=== PATIENT | male | born 1945 | race Native Hawaiian/Other Pacific Islander ===

== ENCOUNTER → 2016-07-15 | Outpatient (CLI) | payer MEDICARE ==
[~2016-07-15] MED LIST: AMLO5TAB22 PO; ATOR10 PO; COZA100T PO; GABA300C3 PO; GLIM2TAB PO; MOBI15TA PO; NEXI40CA PO; SITA100 PO; SOMA250T PO; ST J81CH PO; TAMS0.4C67 PO
[2016-07-15 13:05] LABS: HEMATOCRIT 35.9 % (39.0-51.0); MEAN CELL VOLUME 61.8 FL (80.0-100.0); MEAN CORPUSCULAR HEMOGLOBIN 19.5 PG (27.0-34.0); MEAN CORPUSCULAR HGB CONC 31.6 % (32.0-36.0); PLATELET COUNT 138 TH/MM3 (150-450); RED BLOOD COUNT 5.81 MIL/MM3 (4.50-5.90); RED CELL DISTRIBUTION WIDTH 15.9 % (11.6-17.2); WHITE BLOOD COUNT 8.6 TH/MM3 (4.0-11.0)
[2016-07-15 13:09] LABS: REVIEW FLAG FINAL
[2016-07-15 13:30] LABS: MICRO ALBUMIN RANDOM URINE RAW 39.8 MG/L (0.0-30.0)
[2016-07-15 13:36] LABS: ALKALINE PHOSPHATASE 63 U/L (45-117); ALT (GPT) 42 U/L (12-78); ANION GAP 7 MEQ/L (5-15); AST (GOT) 36 U/L (15-37); BICARBONATE 31.8 MEQ/L (21.0-32.0); BLOOD UREA NITROGEN 17 MG/DL (7-18); CHLORIDE 101 MEQ/L (98-107); GLOMERULAR FILTRATION RATE 75 ML/MIN (>89); GLUCOSE,FASTING 149 MG/DL (74-99); HDL CHOLESTEROL 36.8 MG/DL (40.0-60.0); LDL CHOLESTEROL 55 MG/DL (0-99); LDL CHOLESTEROL DIRECT 82 MG/DL (0-99); POTASSIUM 3.7 MEQ/L (3.5-5.1); SODIUM (NA) 140 MEQ/L (136-145); TOTAL BILIRUBIN ADULT 1.3 MG/DL (0.2-1.0)
[2016-07-15 13:58] LABS: HEMOGLOBIN A1a 1.9 %; HEMOGLOBIN A1b 0.9 %; HEMOGLOBIN Ao 77.8 %; HEMOGLOBIN P3 4.5 %
== END ==
LOC: PLAB 09:45
PROVIDERS: ATTEND Internal Medicine
DX: E11.65 Type 2 diabetes mellitus with hyperglycemia (principal); I10 Essential (primary) hypertension
CPT/HCPCS: 36415; 80053; 80061; 82043; 83036; 83721; 85027

== ENCOUNTER 2016-12-28 | Emergency (ER) | payer MEDICARE ==
[~2016-12-28] VITALS: Ht 172.7 cm; Wt 85.4 kg
[2016-12-28] VITALS (9 sets, daily range): BP systolic 140–214; BP diastolic 76–128; PULSE 61–81; RESP 16–18; TEMP 97.6–97.9; O2SAT 94–97
[2016-12-28] MEDS ORDERED: SODIUM CHLORIDE 0.9% FLUSH 10 ML FLUSH IVF PRN (01:00)
[2016-12-28] MEDS ORDERED: MECLIZINE HCL 25 MG TAB PO ONE (01:00)
[2016-12-28] MEDS ORDERED: INSULIN HUMAN REGULAR 1,000 UNITS/10 ML VIAL IV PUSH ONE ×3 (01:00→04:15)
[2016-12-28 01:32] LABS: BLOOD, URINE NEG (NEG); GLUCOSE,URINE 1000 OR GREATER mg/dL (NEG); KETONE, URINE NEG (NEG); NITRITE,URINE NEG (NEG)
[2016-12-28 01:33] LABS: AUTOMATED NEUTROPHIL # 10.7 TH/MM3 (1.8-7.7); BASOPHIL % 0.1 % (0.0-2.0); EOSINOPHIL % 0.2 % (0.0-4.0); HEMATOCRIT 37.5 % (39.0-51.0); LYMPH % 7.4 % (9.0-44.0); LYMPHOCYTE # 0.9 TH/MM3 (1.0-4.8); MEAN CELL VOLUME 64.9 FL (80.0-100.0); MEAN CORPUSCULAR HEMOGLOBIN 20.1 PG (27.0-34.0); MEAN CORPUSCULAR HGB CONC 30.9 % (32.0-36.0); MONO % 1.6 % (0.0-8.0); NEUT % 90.7 % (16.0-70.0); PLATELET COUNT 162 TH/MM3 (150-450); RED BLOOD COUNT 5.78 MIL/MM3 (4.50-5.90); WHITE BLOOD COUNT 11.8 TH/MM3 (4.0-11.0)
--- NOTE | 2016-12-28 01:36 | RADRPT ---
EXAM DATE/TIME: 12/28/2016 01:25 [facility] COMPARISON: No previous studies available for comparison. INDICATIONS : Dizziness along with vomiting that started tonight RADIATION DOSE: 60.92 CTDIvol (mGy) MEDICAL HISTORY : Cerebrovascular disease. Diabetes mellitus type 2. Hypertension. SURGICAL HISTORY : Appendectomy. ENCOUNTER: Initial ACUITY: 1 day PAIN SCALE: 2/10 LOCATION: cranial TECHNIQUE: Multiple contiguous axial images were obtained of the head. Using automated exposure control and adj ustment of the mA and/or kV according to patient size, radiation dose was kept as low as reasonably a chievable to obtain optimal diagnostic quality images. DICOM format image data is available electro nically for review and comparison. FINDINGS: CEREBRUM: Moderate diffuse cerebral volume loss. Moderate periventricular hypodensities likely reflecting white matter demyelination. The ventricles are in the upper limits of normal for degree of atrophy.. No e vidence of midline shift, mass lesion, hemorrhage or acute infarction. No extra-axial fluid collecti ons are seen. POSTERIOR FOSSA: The cerebellum and brainstem are intact. The 4th ventricle is midline. The cerebellopontine angle i s unremarkable. EXTRACRANIAL: The visualized portion of the orbits is intact. SKULL: The calvaria is intact. No evidence of skull fracture. CONCLUSION: 1. Senescent changes with moderate periventricular ischemic white matter margination. 2. No acute intracranial normality. Bari Mcdermott MD on December 28, 2016 at 1:33 Board Certified Radiologist. This report was verified electronically.
[2016-12-28 01:41] LABS: HEMO FLAGS AUTO DIFF
[2016-12-28 01:44] LABS: CHLORIDE 96 MEQ/L (98-107); POTASSIUM 4.4 MEQ/L (3.5-5.1); SODIUM (NA) 134 MEQ/L (136-145)
[2016-12-28 01:48] LABS: ANION GAP 13 MEQ/L (5-15); BICARBONATE 25.2 MEQ/L (21.0-32.0)
[2016-12-28 01:51] LABS: URINE COLOR YELLOW (YELLW/STRAW)
[2016-12-28 01:52] LABS: SQUAMOUS EPITHELIAL CELL URINE 0-5 /hpf (0-5)
[2016-12-28 01:53] LABS: COMMENT (UR) CULT NOT INDICATED; CULTURE IF INDICATED CULT NOT INDICATED
[2016-12-28 01:55] LABS: ALKALINE PHOSPHATASE 71 U/L (45-117); ALT (GPT) 43 U/L (12-78); AST (GOT) 38 U/L (15-37); BETA-HYDROXYBUTYRATE 0.15 MMOL/L (0.00-0.39); BLOOD UREA NITROGEN 27 MG/DL (7-18); GLOMERULAR FILTRATION RATE 54 ML/MIN (>89); MAGNESIUM 1.7 MG/DL (1.5-2.5); TOTAL BILIRUBIN ADULT 0.9 MG/DL (0.2-1.0)
[2016-12-28 01:57] LABS: PLATELET ESTIMATE SMEAR NORMAL (NORMAL); PLATELET MORPHOLOGY NORMAL (NORMAL); SCAN/DIFF AUTO DIFF CONFIRMED
--- NOTE | 2016-12-28 02:38 | PD ---
HPI Chief Complaint: Dizziness Time Seen by Provider: 00:48 Travel History International Travel<30 days: No Contact w/Intl Traveler<30days: No Traveled to known affect area: No History of Present Illness HPI 71-year-old male with history of diabetes, hypertension, hypercholesterolemia, here for evaluation of sudden onset dizziness that started at around 9:30 PM. The patient had a cortisone injection in his left knee today as well as a flu shot. BGL upon arrival to the emergency department is 460s. Patient reports he feels as though the room is spinning. He denies headache. No chest pain or dyspnea. No paresthesias or motor deficits. No fevers or recent illness. PFSH Past Medical History Arthritis: Yes Anxiety: No Depression: No Cancer: No Cardiovascular Problems: Yes High Cholesterol: Yes Chest Pain: Yes Cerebrovascular Accident: Yes (HX STROKE, 2003) Diabetes: Yes Patient Takes Glucophage: No Diminished Hearing: No Endocrine: Yes Gastrointestinal Disorders: Yes (appendectomy) GERD: No Genitourinary: No Hiatal Hernia: No Hypertension: Yes Musculoskeletal: Yes Neurologic: No Psychiatric: No Reproductive: No Respiratory: No Sickle Cell Disease: No Thyroid Disease: No Ulcer: No Influenza Vaccination: Yes (12/27/16) Past Surgical History Abdominal Surgery: No AICD: No Arteriovenous Shunt: No Cardiac Surgery: No Ear Surgery: No Endocrine Surgery: No Eye Surgery: No Genitourinary Surgery: No Gynecologic Surgery: No Insulin Pump: No Joint Replacement: No Oral Surgery: No Pacemaker: No Thoracic Surgery: No Other Surgery: Yes Social History Alcohol Use: No Tobacco Use: No Substance Use: No Allergies-Medications (Allergen,Severity, Reaction): Coded Allergies: No Known Allergies (Verified , 10/27/14) Reported Meds & Prescriptions Reported Meds & Active Scripts Active Reported Soma (Carisoprodol) 250 Mg Tab 250 Mg PO HS Aspirin 81 mg chewable (Aspirin) 81 Mg Chw 81 Mg PO DAILY Cozaar (Losartan Potassium) 100 Mg Tab 100 Mg PO DAILY Glimepiride 2 Mg Tab 2 Mg PO BID Gabapentin 300 Mg Cap 300 Mg PO DAILY Lipitor (Atorvastatin Calcium) 10 Mg Tab 10 Mg PO HS Amlodipine Besylate 5 mg (Amlodipine Besylate) 5 Mg Tab 5 Mg PO DAILY Flomax (Tamsulosin HCl) 0.4 Mg Cap 0.4 Mg PO DAILY Review of Systems Except as stated in HPI: all other systems reviewed are Neg Physical Exam Narrative GENERAL: Well-developed, well-nourished, awake, alert, GCS 15, no apparent distress. SKIN: Focused skin assessment warm/dry. HEAD: Atraumatic. Normocephalic. EYES: Pupils equal, round, 3 mm, react to light. EOMI. No scleral icterus. No injection or drainage. ENT: No nasal bleeding or discharge. Mucous membranes pink and moist. NECK: Trachea midline. No JVD. CARDIOVASCULAR: Regular rate and rhythm. RESPIRATORY: No accessory muscle use. Clear to auscultation. Breath sounds equal bilaterally. GASTROINTESTINAL: Abdomen soft, non-tender, nondistended. MUSCULOSKELETAL: No obvious deformities. No clubbing. No cyanosis. No edema. NEUROLOGICAL: Awake and alert. No obvious cranial nerve deficits. Motor grossly within normal limits. Normal speech. No focal deficits. No pronator drift. PSYCHIATRIC: Appropriate mood and affect; insight and judgment normal. Data Data Last Documented VS Vital Signs Date Time Temp Pulse Resp B/P (MAP) Pulse Ox O2 Delivery O2 Flow Rate FiO2 12/28/16 03:05 68 18 178/90 (119) 96 Room Air 12/28/16 02:08 97.7 Orders Orders Electrocardiogram (12/28/16 00:52) Complete Blood Count With Diff (12/28/16 00:52) Comprehensive Metabolic Panel (12/28/16 00:52) Magnesium (Mg) (12/28/16 00:52) Beta Hydroxybutyrate (Acetone) (12/28/16 00:52) Urinalysis - C+S If Indicated (12/28/16 00:52) Ecg Monitoring (12/28/16 00:52) Iv Access Insert/Monitor (12/28/16 00:52) Oximetry (12/28/16 00:52) NPO (12/28/16 00:52) Sodium Chloride 0.9% Flush (Ns Flush) (12/28/16 01:00) Insulin Human Regular Inj (Novolin R Inj (12/28/16 01:00) Ct Brain W/O Iv Contrast(Rout) (12/28/16 ) Meclizine (Antivert) (12/28/16 01:00) Amlodipine (Norvasc) (12/28/16 02:30) Insulin Human Regular Inj (Novolin R Inj (12/28/16 02:30) Mra Brain W/O Contrast (Cow) (12/28/16 02:26) Mri Brain W/O Contrast (12/28/16 ) Insulin Human Regular Inj (Novolin R Inj (12/28/16 04:15) Labs Laboratory Tests Test 12/28/16 00:45 White Blood Count 11.8 TH/MM3 Red Blood Count 5.78 MIL/MM3 Hemoglobin 11.6 GM/DL Hematocrit 37.5 % Mean Corpuscular Volume 64.9 FL Mean Corpuscular Hemoglobin 20.1 PG Mean Corpuscular Hemoglobin Concent 30.9 % Red Cell Distribution Width 15.0 % Platelet Count 162 TH/MM3 Mean Platelet Volume 9.2 FL Neutrophils (%) (Auto) 90.7 % Lymphocytes (%) (Auto) 7.4 % Monocytes (%) (Auto) 1.6 % Eosinophils (%) (Auto) 0.2 % Basophils (%) (Auto) 0.1 % Neutrophils # (Auto) 10.7 TH/MM3 Lymphocytes # (Auto) 0.9 TH/MM3 Monocytes # (Auto) 0.2 TH/MM3 Eosinophils # (Auto) 0.0 TH/MM3 Basophils # (Auto) 0.0 TH/MM3 CBC Comment AUTO DIFF Differential Comment AUTO DIFF CONFIRMED Platelet Estimate NORMAL Platelet Morphology Comment NORMAL Basophilic Stippling FAINT Urine Color YELLOW Urine Turbidity CLEAR Urine pH 6.0 Urine Specific [place] 1.025 Urine Protein NEG mg/dL Urine Glucose (UA) 1000 OR GREATER mg/dL Urine Ketones NEG mg/dL Urine Occult Blood NEG Urine Nitrite NEG Urine Bilirubin NEG Urine Leukocyte Esterase NEG Urine Squamous Epithelial Cells 0-5 /hpf Microscopic Urinalysis Comment CULT NOT INDICATED Blood Urea Nitrogen 27 MG/DL Creatinine 1.30 MG/DL Random Glucose 468 MG/DL Total Protein 7.8 GM/DL Albumin 3.9 GM/DL Calcium Level 9.5 MG/DL Magnesium Level 1.7 MG/DL Alkaline Phosphatase 71 U/L Aspartate Amino Transf (AST/SGOT) 38 U/L Alanine Aminotransferase (ALT/SGPT) 43 U/L Total Bilirubin 0.9 MG/DL Sodium Level 134 MEQ/L Potassium Level 4.4 MEQ/L Chloride Level 96 MEQ/L Carbon Dioxide Level 25.2 MEQ/L Anion Gap 13 MEQ/L Estimat Glomerular Filtration Rate 54 ML/MIN B-Hydroxybutyrate 0.15 MMOL/L [facility] Medical Decision Making Medical Screen Exam Complete: Yes Emergency Medical Condition: Yes Medical Record Reviewed: Yes Interpretation(s) EKG: Sinus, rate 69, leftward axis, normal intervals, no acute ischemic abnormality. Differential Diagnosis Vertigo, CVA, metabolic abnormality, dysrhythmia, medication side effect, hyperglycemia, DKA Narrative Course Initial vital signs show heart rate 80, blood pressure 214/109, pulse ox 97% on room air, oral temp of 97.9F. CBC shows WBC 11.8, hemoglobin 11.6, hematocrit 37.5, platelets and 62, neutrophils 90.7%, faint basophilic stippling CMP is remarkable for random glucose 468, otherwise unremarkable. Beta hydroxybutyrate is 0.15. UA shows 1000 or greater glucose, negative ketones, otherwise unremarkable. CT brain: CONCLUSION: 1. Senescent changes with moderate periventricular ischemic white matter margination. 2. No acute intracranial abnormality. Patient and the patient's family were made aware of all findings. Chart review shows that the patient has had anemia in the past, however according to the family attempted has never really been worked up. He has no formal diagnoses regarding this. The patient was given meclizine as well as 6 units of IV insulin. Repeat BGL is 350. On reassessment the patient reports that he feels improved, however when he attempts to ambulate he is unsteady and becomes dizzy. Because of this, I have decided to order MRI to rule out CVA. MRI brain: CONCLUSION: 1. Senescent changes with moderate periventricular small vessel ischemic white matter demyelination. 2. No evidence for acute ischemia or other significant intracranial abnormality. MRA brain/COW: CONCLUSION: 1. Unremarkable MRA examination of the head. No evidence for large vessel occlusion or stenosis. Patient was given several doses of IV insulin with improved BGL. Elevated blood sugar is likely secondary to cortisone injection that he received in his left knee earlier yesterday. Both the patient and the patient's were made aware of all findings. On reassessment the patient reports feeling much better and is no longer dizzy. He likely experience an episode of vertigo. He was provided a copy of his CBC with instructions to follow-up with his primary physician Dr. Hutchinson regarding his anemia and basophilic stippling. He is stable for discharge home with further workup as an outpatient. He was informed on when to return to the emergency department. He verbalizes understanding and agreement with plan. Diagnosis Primary Impression: Dizziness Additional Impressions: Hyperglycemia Anemia Qualified Codes: D64.9 - Anemia, unspecified Referrals: Primary Care Physician 3 days Additional Instructions: Follow-up with your primary care physician this week. Return to the emergency department for worsening symptoms or any other concerns. Disposition: 01 DISCHARGE HOME Condition: Stable Timmy Sorensen MD Dec 28, 2016 02:38
--- NOTE | 2016-12-28 04:08 | RADRPT ---
EXAM DATE/TIME: 12/28/2016 03:48 [facility] COMPARISON: No previous studies available for comparison. INDICATIONS : CVA. Dizziness. MEDICAL HISTORY : Hypertension. Diabetes mellitus type 2. SURGICAL HISTORY : Left wrist ENCOUNTER: Initial ACUITY: 1 day PAIN SCORE: 0/10 LOCATION: cranial Please note a normal MRA of the brain does not entirely exclude the possibility of a small aneurysm, nor the possibility of distal intracranial vessel disease. TECHNIQUE: 3D time of flight MRA was performed. Source images, multiplanar STS MIP, and 3D volume MIP reconstru ctions were reviewed. FINDINGS: Anterior circulation: Intracranial carotid arteries are patent with flow extending to the middle and anterior cervical scotty mari bilaterally. There is no evidence for aneurysm, vessel truncation or stenosis, and no evidence f or vascular malformation. Posterior circulation: Nearly codominant vertebral arteries with flow extending to the basilar artery and posterior cerebral arteries. There is no evidence for aneurysm, vessel truncation or stenosis, and no evidence for vasc ular malformation. CONCLUSION: 1. Unremarkable MRA examination of the head. No evidence for large vessel occlusion or stenosis. Bari Mcdermott MD on December 28, 2016 at 4:02 Board Certified Radiologist. This report was verified electronically.
--- NOTE | 2016-12-28 04:13 | RADRPT ---
EXAM DATE/TIME: 12/28/2016 03:48 [facility] COMPARISON: CT BRAIN W/O CONTRAST, December 28, 2016, 1:25. INDICATIONS : CVA. Dizziness MEDICAL HISTORY : Hypertension. Diabetes mellitus type 2. SURGICAL HISTORY : Left wrist ENCOUNTER: Initial ACUITY: 1 day PAIN SCORE: 0/10 LOCATION: cranial TECHNIQUE: Multiplanar, multisequence MRI of the brain was performed without contrast. FINDINGS: CEREBRUM: Moderate diffuse renal atrophy. The ventricles are normal for degree of atrophy. No evidence of midl ine shift, mass lesion, hemorrhage or acute infarction. No extraaxial fluid collections are seen. T he pituitary gland and suprasellar cistern are normal in configuration. WHITE MATTER: Moderate periventricular confluent deep white matter T2 prolongation. POSTERIOR FOSSA: The cerebellum and brainstem are intact. The 4th ventricle is midline. The cerebellopontine angle is unremarkable. The cerebellar tonsils are normal in position. DIFFUSION IMAGING: No focal areas of restricted diffusion are seen. No evidence of acute infarction. EXTRACRANIAL: The visualized portions of the orbits and paranasal sinuses are unremarkable. CONCLUSION: 1. Senescent changes with moderate periventricular small vessel ischemic white matter demyelination. 2. No evidence for acute ischemia or other significant intracranial abnormality. Bari Mcdermott MD on December 28, 2016 at 4:06 Board Certified Radiologist. This report was verified electronically.
--- NOTE | 2016-12-28 14:34 | EKG ---
Date Performed: 12/28/2016 Time Performed: 01:01:27 PTAGE: 71 years EKG: Sinus rhythm WITH SINUS ARRHYTHMIA MARKED LEFT AXIS DEVIATION ABNORMAL ECG Compared to prior tracing no significa nt change PREVIOUS TRACING : 10/27/2014 16.09 DOCTOR: Toney Ortega Interpretating Date/Time 12/28/2016 14:31:09
== END 2016-12-28 05:43 | disposition home or self-care (01) ==
LOC: PHED
DX: R42 Dizziness and giddiness (principal); E11.65 Type 2 diabetes mellitus with hyperglycemia; D64.9 Anemia, unspecified; R94.31 Abnormal electrocardiogram [ECG] [EKG]; Z79.4 Long term (current) use of insulin
CPT/HCPCS: 70450; 70544; 70551; 80053; 81001; 82010; 83735; 85025; 93005; 96374; 96376; 99285; J1815

== ENCOUNTER 2017-06-12 16:56 | Inpatient (IN) | payer OTHER, MEDICARE ==
[2017-06-12] VITALS (7 sets, daily range): BP systolic 138–179; BP diastolic 84–98; PULSE 60–93; RESP 16–18; TEMP 98.1–98.9; O2SAT 93–96
[~2017-06-12] VITALS: Ht 175.3 cm; Wt 84.9 kg
[~2017-06-12 16:56] MED LIST changes: -MOBI15TA PO; -NEXI40CA PO; -SITA100 PO
--- NOTE | 2017-06-12 17:17 | PD ---
HPI Chief Complaint: Neuro Symptoms/ Deficits Time Seen by Provider: 17:16 Travel History International Travel<30 days: No Contact w/Intl Traveler<30days: No Traveled to known affect area: No History of Present Illness HPI 72-year-old male came to the emergency room with history of right sided weakness that has been there for past 4-5 days. He is here with his son who is also giving additional history. Patient had a stroke on his right side in 2003. Since then he has a very subtle weakness and decreased sensation. He has learned to live with dad and functional with that. He usually walks with a cane. However for past 4-5 days he noticed that his right side was more tingling. Also even though this is unclear but he thinks as of yesterday his right upper extremity and lower extremity has been feeling weaker. He's been having trouble holding objects with his right hand and right thing. His gait is slightly weaker on the right side as per the son says he can noticed that since he knows her well. Patient had gone to see his orthopedist for his left knee but when he mentioned all this to the orthopedist he was recommended that he should come to the emergency room. Patient takes 1 baby aspirin every night. No history of syncopal episode. No history of chest pain or shortness of breath. Vital signs were relatively stable. [facility] Past Medical History Narrative Medical List of his past medical, surgical, social and family history was reviewed from the nursing note. Arthritis: Yes Anxiety: No Depression: No Cancer: No Cardiovascular Problems: Yes High Cholesterol: Yes Chest Pain: Yes Cerebrovascular Accident: Yes (HX STROKE, 2003) Diabetes: Yes Diminished Hearing: No Endocrine: Yes Gastrointestinal Disorders: Yes (appendectomy) GERD: No Genitourinary: No Hiatal Hernia: No Hypertension: Yes Musculoskeletal: Yes Neurologic: No Psychiatric: No Reproductive: No Respiratory: No Sickle Cell Disease: No Thyroid Disease: No Ulcer: No Past Surgical History Abdominal Surgery: No AICD: No Arteriovenous Shunt: No Cardiac Surgery: No Ear Surgery: No Endocrine Surgery: No Eye Surgery: No Genitourinary Surgery: No Gynecologic Surgery: No Insulin Pump: No Joint Replacement: No Oral Surgery: No Pacemaker: No Thoracic Surgery: No Other Surgery: Yes Social History Alcohol Use: No Tobacco Use: No Substance Use: No Allergies-Medications (Allergen,Severity, Reaction): Coded Allergies: No Known Allergies (Verified Allergy, Unknown, 06/12/17) Comments No known drug allergies. Reported Meds & Prescriptions Reported Meds & Active Scripts Active Reported Metformin (Metformin HCl) 500 Mg Tab 500 Mg PO DAILY With a meal Meloxicam 15 Mg Tab 15 Mg PO DAILY PRN Losartan-Hydrochlorothiazide 100-12.5 Mg Tab 1 Tab PO DAILY Finasteride 5 Mg Tab 5 Mg PO DAILY Do not crush. Amlodipine (Amlodipine Besylate) 5 Mg Tab 5 Mg PO DAILY Gabapentin 300 Mg Cap 300 Mg PO BID Nexium (Esomeprazole DR) 40 Mg Capdr 40 Mg PO DAILY Glimepiride 2 Mg Tab 2 Mg PO DAILY Take with breakfast or first main meal Januvia (Sitagliptin Phosphate) 100 Mg Tab 100 Mg PO HS Tamsulosin (Tamsulosin HCl) 0.4 Mg Cap 0.4 Mg HS Narrative Medication List of his home medications reviewed from the nursing note. Review of Systems Except as stated in HPI: all other systems reviewed are Neg Neurologic: Positive: Weakness Physical Exam Narrative GENERAL: Awake, alert, no obvious distress SKIN: Focused skin assessment warm/dry. Pale HEAD: Atraumatic. Normocephalic. EYES: Pupils equal and round. No scleral icterus. No injection or drainage. ENT: No nasal bleeding or discharge. Mucous membranes pink and moist. NECK: Trachea midline. No JVD. CARDIOVASCULAR: Regular rate and rhythm. No murmur appreciated. RESPIRATORY: No accessory muscle use. Clear to auscultation. Breath sounds equal bilaterally. GASTROINTESTINAL: Abdomen soft, non-tender, nondistended. Hepatic and splenic margins not palpable. MUSCULOSKELETAL: No obvious deformities. No clubbing. No cyanosis. No edema. NEUROLOGICAL: Awake and alert. No obvious cranial nerve deficits. Right upper extremity and right lower extremity strength is 3 out of 5. Normal speech. Sensation is decreased on the right upper and lower extremity but as per the patient that is not new PSYCHIATRIC: Appropriate mood and affect; insight and judgment normal. Data Data Last Documented VS Orders Orders Electrocardiogram (06/12/17 17:29) Prothrombin Time / Inr (Pt) (06/12/17 17:29) Complete Blood Count With Diff (06/12/17 17:29) Basic Metabolic Panel (Bmp) (06/12/17 17:29) Troponin I (06/12/17 17:29) Urinalysis - C+S If Indicated (06/12/17 17:29) Ct Brain W/O Iv Contrast(Rout) (06/12/17 17:29) Chest, Single Ap (06/12/17 17:29) Ecg Monitoring (06/12/17 17:29) Iv Access Insert/Monitor (06/12/17 17:29) Oximetry (06/12/17 17:29) Sodium Chloride 0.9% Flush (Ns Flush) (06/12/17 17:30) Type And Screen (06/12/17 17:29) Insulin Human Regular Inj (Novolin R Inj (06/12/17 18:30) Sodium Chlorid 0.9% 500 Ml Inj (Ns 500 M (06/12/17 18:30) Clopidogrel (Plavix) (06/12/17 19:45) Admit Order (Ed Use Only) (06/12/17 19:46) Labs Laboratory Tests Test 06/12/17 17:54 06/12/17 17:55 06/12/17 18:00 Hemoglobin A1c 10.7 % White Blood Count 7.8 TH/MM3 Red Blood Count 5.64 MIL/MM3 Hemoglobin 11.5 GM/DL Hematocrit 36.4 % Mean Corpuscular Volume 64.5 FL Mean Corpuscular Hemoglobin 20.4 PG Mean Corpuscular Hemoglobin Concent 31.6 % Red Cell Distribution Width 15.3 % Platelet Count 152 TH/MM3 Mean Platelet Volume 8.8 FL Neutrophils (%) (Auto) 66.6 % Lymphocytes (%) (Auto) 21.0 % Monocytes (%) (Auto) 10.4 % Eosinophils (%) (Auto) 1.7 % Basophils (%) (Auto) 0.3 % Neutrophils # (Auto) 5.3 TH/MM3 Lymphocytes # (Auto) 1.6 TH/MM3 Monocytes # (Auto) 0.8 TH/MM3 Eosinophils # (Auto) 0.1 TH/MM3 Basophils # (Auto) 0.0 TH/MM3 CBC Comment AUTO DIFF Differential Comment AUTO DIFF CONFIRMED Platelet Estimate NORMAL Platelet Morphology Comment NORMAL Ovalocytes 1+ Prothrombin Time 10.7 SEC Prothromb Time International Ratio 1.1 RATIO Blood Urea Nitrogen 18 MG/DL Creatinine 1.20 MG/DL Random Glucose 347 MG/DL Calcium Level 8.3 MG/DL Sodium Level 136 MEQ/L Potassium Level 3.7 MEQ/L Chloride Level 100 MEQ/L Carbon Dioxide Level 28.8 MEQ/L Anion Gap 7 MEQ/L Estimat Glomerular Filtration Rate 60 ML/MIN Troponin I LESS THAN 0.02 NG/ML Urine Color YELLOW Urine Turbidity CLEAR Urine pH 6.5 Urine Specific [place] 1.018 Urine Protein NEG mg/dL Urine Glucose (UA) 1000 OR GREATER mg/dL Urine Ketones NEG mg/dL Urine Occult Blood NEG Urine Nitrite NEG Urine Bilirubin NEG Urine Leukocyte Esterase NEG Urine RBC 0-2 /hpf Urine WBC 0-2 /hpf Urine Squamous Epithelial Cells 0-5 /hpf Urine Bacteria NONE /hpf Microscopic Urinalysis Comment CULT NOT INDICATED MDM Medical Decision Making Medical Screen Exam Complete: Yes Emergency Medical Condition: Yes Medical Record Reviewed: Yes Interpretation(s) Twelve-lead EKG was reviewed by me. Normal sinus rhythm, left axis deviation, nonspecific ST-T wave changes. Heart rate of 83 bpm. Differential Diagnosis CVA, intracranial bleed, intracranial mass Narrative Course 6:34 PM blood test results of back and within acceptable limits except for his blood sugar which is 375. Patient is getting 10 units of subcutaneous insulin and IV fluid bolus. Awaiting for the CAT scan to be done and resulted. 7:[address] is within normal limits. Given patient's symptoms it sounds like they are progressing over the past 4-5 days. Initially started with the paresthesia and the weakness started yesterday. Still be too early to show up on plain CT. I discussed the case with the neurologist closer on Dr. Sal and he agrees. He wants the patient to be admitted and be started on Plavix. He will consult on the patient. Awaiting for the hospitalist call back. Procedures EKG Prior to Arrival: No Physician Communication Physician Communication Dr. Sal Diagnosis Primary Impression: Stroke Qualified Codes: I63.9 - Cerebral infarction, unspecified Additional Impression: Hyperglycemia Admitting Information Admitting Physician Requests: Admit Scripts Amlodipine (Norvasc) 10 Mg Tab 10 MG PO DAILY, #30 TAB Prov: Bradley Hugo MD 06/14/17 Atorvastatin (Lipitor) 10 Mg Tab 10 MG PO HS, #30 TAB Prov: Bradley Hugo MD 06/14/17 Clopidogrel (Plavix) 75 Mg Tab 75 MG PO DAILY, #30 TAB Prov: Bradley Hugo MD 06/14/17 Chan Mcelroy MD Jun 12, 2017 17:17
[2017-06-12] MEDS ORDERED: SODIUM CHLORIDE 0.9% FLUSH 10 ML FLUSH IVF PRN (17:30)
[2017-06-12 17:59] LABS: AUTOMATED NEUTROPHIL # 5.3 TH/MM3 (1.8-7.7); BASOPHIL % 0.3 % (0.0-2.0); EOSINOPHIL # 0.1 TH/MM3 (0-0.4); EOSINOPHIL % 1.7 % (0.0-4.0); HEMATOCRIT 36.4 % (39.0-51.0); HEMOGLOBIN 11.5 GM/DL (13.0-17.0); LYMPHOCYTE # 1.6 TH/MM3 (1.0-4.8); MEAN CELL VOLUME 64.5 FL (80.0-100.0); MEAN CORPUSCULAR HEMOGLOBIN 20.4 PG (27.0-34.0); MEAN CORPUSCULAR HGB CONC 31.6 % (32.0-36.0); MEAN PLATELET VOLUME 8.8 FL (7.0-11.0); MONO % 10.4 % (0.0-8.0); MONOCYTE # 0.8 TH/MM3 (0-0.9); NEUT % 66.6 % (16.0-70.0); PLATELET COUNT 152 TH/MM3 (150-450); RED BLOOD COUNT 5.64 MIL/MM3 (4.50-5.90); RED CELL DISTRIBUTION WIDTH 15.3 % (11.6-17.2); WHITE BLOOD COUNT 7.8 TH/MM3 (4.0-11.0)
[2017-06-12] MEDS ORDERED: LOSA100T3 PO (18:03)
[2017-06-12] MEDS ORDERED: NEXI40CA PO (18:03)
[2017-06-12] MEDS ORDERED: GABA300C5 PO (18:03)
[2017-06-12] MEDS ORDERED: MELO15TA20 PO ×2 (18:03)
[2017-06-12] MEDS ORDERED: SITA1TAB2 PO (18:03)
[2017-06-12] MEDS ORDERED: GLIM2TAB PO (18:03)
[2017-06-12] MEDS ORDERED: METF500T PO (18:03)
[2017-06-12] MEDS ORDERED: TAMS0.4C4 (18:03)
[2017-06-12] MEDS ORDERED: AMLO5TAB2 PO (18:03)
[2017-06-12] MEDS ORDERED: FINA5TAB2 PO (18:03)
[2017-06-12 18:09] LABS: CHLORIDE 100 MEQ/L (98-107); SODIUM (NA) 136 MEQ/L (136-145)
--- NOTE | 2017-06-12 18:09 | RADRPT ---
EXAM DATE/TIME: 06/12/2017 17:59 [facility] COMPARISON: CHEST SINGLE AP, October 27, 2014, 9:44. INDICATIONS : Numbness in right hand. MEDICAL HISTORY : Stroke. Chronic obstructive pulmonary disease. SURGICAL HISTORY : None. ENCOUNTER: Initial ACUITY: 2 days PAIN SCORE: 2/10 LOCATION: Bilateral chest FINDINGS: Stable mild bibasilar airspace disease. No new focal pleural or parenchymal opacities. Cardiomedi ada l contours are within normal limits given portable technique. Bony thorax is intact. CONCLUSION: 1. No acute abnormality or significant interval change. Bari Mcdermott MD on June 12, 2017 at 18:07 Board Certified Radiologist. This report was verified electronically.
[2017-06-12 18:10] LABS: BILIRUBIN, URINE NEG (NEG); BLOOD, URINE NEG (NEG); GLUCOSE,URINE 1000 OR GREATER mg/dL (NEG); KETONE, URINE NEG (NEG); NITRITE,URINE NEG (NEG); PH, URINE 6.5 (5.0-8.5); URINE LEUKOCYTE ESTERASE NEG (NEG)
[2017-06-12 18:12] LABS: BICARBONATE 28.8 MEQ/L (21.0-32.0); BLOOD UREA NITROGEN 18 MG/DL (7-18); CALCIUM 8.3 MG/DL (8.5-10.1); GLUCOSE,RANDOM 347 MG/DL (74-106)
[2017-06-12 18:15] LABS: INTERNATIONAL NORMALIZED RATIO 1.1 RATIO; PROTHROMBIN TIME - PATIENT 10.7 SEC (9.8-11.6)
[2017-06-12 18:16] LABS: GLOMERULAR FILTRATION RATE 60 ML/MIN (>89)
[2017-06-12 18:20] LABS: TROPONIN I LESS THAN 0.02 NG/ML (0.02-0.05)
[2017-06-12 18:24] LABS: RBC, URINE 0-2 /hpf (0-3); SQUAMOUS EPITHELIAL CELL URINE 0-5 /hpf (0-5); URINE COLOR YELLOW (YELLW/STRAW); WBC, URINE 0-2 /hpf (0-5)
[2017-06-12] MEDS ORDERED: INSULIN HUMAN REGULAR 1,000 UNITS/10 ML VIAL SQ ONE (18:30)
[2017-06-12] MEDS ORDERED: SODIUM CHLORID 0.9% 500 ML INJ 500 ML IV ONE (18:30)
[2017-06-12 19:13] LABS: OVALOCYTES 1+ (NORMAL)
--- NOTE | 2017-06-12 19:14 | RADRPT ---
EXAM DATE/TIME: 06/12/2017 19:02 [facility] COMPARISON: CT BRAIN W/O CONTRAST, December 28, 2016, 1:25. INDICATIONS : Right sided numbness and weakness x 4 days. RADIATION DOSE: 59.25 CTDIvol (mGy) MEDICAL HISTORY : Cerebrovascular disease. Diabetes mellitus type 2. Hypertension. SURGICAL HISTORY : Appendectomy. ENCOUNTER: Initial ACUITY: 4 - 6 days PAIN SCALE: 0/10 LOCATION: cranial TECHNIQUE: Multiple contiguous axial images were obtained of the head. Using automated exposure control and adj ustment of the mA and/or kV according to patient size, radiation dose was kept as low as reasonably a chievable to obtain optimal diagnostic quality images. DICOM format image data is available electro nically for review and comparison. FINDINGS: Mild lateral ventricular asymmetry and dilatation is unchanged. Patchy moderate diminished attenuatio n in periventricular white matter is unchanged. There is no evidence of intra-cranial mass or hemorrh age. There is nothing to suggest acute infarction. The extracranial structures are stable and benign. CONCLUSION: No acute cranial findings Brandon Davis MD on June 12, 2017 at 19:11 Board Certified Radiologist. This report was verified electronically.
[2017-06-12] MEDS ORDERED: GLUCAGON 1 MG/ML VIAL OTHER PRN (19:45)
[2017-06-12] MEDS ORDERED: SODIUM CHLORIDE 0.9% FLUSH 10 ML FLUSH IV FLUSH PRN (19:45)
[2017-06-12] MEDS ORDERED: CLOPIDOGREL 75 MG TAB PO ONE (19:45)
[2017-06-12] MEDS ORDERED: DEXTROSE 50% IN WATER 50 ML VIAL(D50) IV PUSH PRN (19:45)
[2017-06-12] MEDS: SODIUM CHLOR 0.9% 1000 ML INJ 1,000 ML IV SCH (20:30)
[2017-06-12] MEDS: ATORVASTATIN 10 MG TAB PO SCH (20:30)
[2017-06-12] MEDS: SODIUM CHLORIDE 0.9% FLUSH 10 ML FLUSH IV FLUSH SCH (20:34)
[2017-06-12] MEDS: INSULIN ASPART SUPPLEMENTAL SCALE SQ SCH (21:25)
[2017-06-13] VITALS (7 sets, daily range): BP systolic 133–194; BP diastolic 80–103; PULSE 55–82; RESP 16–18; TEMP 97.1–98; O2SAT 92–98
[2017-06-13] MEDS: INSULIN ASPART SUPPLEMENTAL SCALE SQ SCH ×4 (08:00→22:05)
[2017-06-13] MEDS: GABAPENTIN 300 MG CAP PO SCH ×2 (09:00→21:58)
[2017-06-13] MEDS: SODIUM CHLORIDE 0.9% FLUSH 10 ML FLUSH IV FLUSH SCH ×2 (09:00→21:57)
[2017-06-13] MEDS ORDERED: NON-FORMULARY DRUG (Losartan-Hydrochlorothiazide 1 TAB) PO SCH (09:00)
[2017-06-13] MEDS ORDERED: amLODIPine BESYLATE 5 MG TAB PO SCH (09:00)
[2017-06-13] MEDS ORDERED: HYDROCHLOROTHIAZIDE 12.5 MG CAP PO SCH (09:00)
--- NOTE | 2017-06-13 09:25 | HHI.HP ---
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 Patient reports about for 5 days ago he was doing some yard work when he noticed some numbness of his right hand and he was unable to make a fist. He also noticed some difficulty with walking due to right leg weakness. He presented to his orthopedics office yesterday for arthritis and was directed to come to the emergency room. On my evaluation, he reports that the right hand medical chemist strength is better. He did have a headache involving the left side a few days ago but that resolved. Currently denies any new weakness or numbness. Neurology was consulted from the emergency room and it was recommended the patient restarted on Plavix. 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 Amlodipine (Amlodipine Besylate) 5 Mg Tab 5 Mg PO DAILY Gabapentin 300 Mg Cap 300 Mg PO BID Nexium (Esomeprazole DR) 40 Mg Capdr 40 Mg PO DAILY Glimepiride 2 Mg Tab 2 Mg PO DAILY Take with breakfast or first main meal Januvia (Sitagliptin Phosphate) 100 Mg Tab 100 Mg PO HS Tamsulosin (Tamsulosin HCl) 0.4 Mg Cap 0.4 Mg HS Allergies: Coded Allergies: No Known Allergies (Verified Allergy, Unknown, 06/12/17) Family History Reviewed and found to be noncontributory. Social History No tobacco. Occasional alcohol. Physical Exam Vital Signs Vital Signs Date Time Temp Pulse Resp B/P (MAP) Pulse Ox O2 Delivery O2 Flow Rate FiO2 06/13/17 04:00 97.9 82 17 140/80 (100) 96 06/13/17 00:30 67 06/13/17 00:00 98.0 65 18 133/87 (102) 97 06/12/17 22:08 98.1 60 17 148/89 (108) 96 06/12/17 21:49 06/12/17 21:00 95 06/12/17 20:57 175/98 (123) 06/12/17 20:50 95 Room Air 06/12/17 20:30 64 16 179/95 (123) 95 Room Air 06/12/17 18:35 78 18 141/92 (108) 95 Room Air 06/12/17 17:30 95 Room Air 06/12/17 17:01 98.9 93 16 138/84 (102) 93 Physical Exam GENERAL: This is a well-nourished, well-developed patient, in no apparent distress. SKIN: No rashes, ecchymoses or lesions. Cool and dry. HEAD: Atraumatic. Normocephalic. No temporal or scalp tenderness. EYES: Pupils equal round and reactive. Extraocular motions intact. No scleral icterus. No injection or drainage. ENT: Nose without bleeding, purulent drainage or septal hematoma. Throat without erythema, tonsillar hypertrophy or exudate. Uvula midline. Airway patent. NECK: Trachea midline. No JVD or lymphadenopathy. Supple, nontender, no meningeal signs. CARDIOVASCULAR: Regular rate and rhythm without murmurs, gallops, or rubs. RESPIRATORY: Clear to auscultation. Breath sounds equal bilaterally. No wheezes , rales, or rhonchi. GASTROINTESTINAL: Abdomen soft, non-tender, nondistended. No hepato-splenomegaly , or palpable masses. No guarding. MUSCULOSKELETAL: Extremities without clubbing, cyanosis, or edema. No joint tenderness, effusion, or edema noted. No calf tenderness. Negative Homans sign bilaterally. NEUROLOGICAL: Awake and alert. Cranial nerves II through XII intact. Right side 4/5 strength. Left side 5/5. Normal speech Laboratory Laboratory Tests Test 06/12/17 17:54 06/12/17 17:55 06/12/17 18:00 06/13/17 05:35 White Blood Count 7.8 Red Blood Count 5.64 Hemoglobin 11.5 Hematocrit 36.4 Mean Corpuscular Volume 64.5 Mean Corpuscular Hemoglobin 20.4 Mean Corpuscular Hemoglobin Concent 31.6 Red Cell Distribution Width 15.3 Platelet Count 152 Mean Platelet Volume 8.8 Neutrophils (%) (Auto) 66.6 Lymphocytes (%) (Auto) 21.0 Monocytes (%) (Auto) 10.4 Eosinophils (%) (Auto) 1.7 Basophils (%) (Auto) 0.3 Neutrophils # (Auto) 5.3 Lymphocytes # (Auto) 1.6 Monocytes # (Auto) 0.8 Eosinophils # (Auto) 0.1 Basophils # (Auto) 0.0 CBC Comment AUTO DIFF Differential Comment AUTO DIFF CONFIRMED Platelet Estimate NORMAL Platelet Morphology Comment NORMAL Ovalocytes 1+ Prothrombin Time 10.7 Prothromb Time International Ratio 1.1 Blood Urea Nitrogen 18 Creatinine 1.20 Random Glucose 347 Calcium Level 8.3 Sodium Level 136 Potassium Level 3.7 Chloride Level 100 Carbon Dioxide Level 28.8 Anion Gap 7 Estimat Glomerular Filtration Rate 60 Troponin I LESS THAN 0.02 Urine Color YELLOW Urine Turbidity CLEAR Urine pH 6.5 Urine Specific [place] 1.018 Urine Protein NEG Urine Glucose (UA) 1000 OR GREATER Urine Ketones NEG Urine Occult Blood NEG Urine Nitrite NEG Urine Bilirubin NEG Urine Leukocyte Esterase NEG Urine RBC 0-2 Urine WBC 0-2 Urine Squamous Epithelial Cells 0-5 Urine Bacteria NONE Microscopic Urinalysis Comment CULT NOT INDICATED Result Diagram: 06/12/17175406/12/171754 Imaging Last Impressions Head CT 06/12/171728 Signed Impressions: Service Date/Time: Monday, June 12, 2017 19:02 - CONCLUSION: No acute cranial findings Brandon Davis MD Chest X-Ray 06/12/171728 Signed Impressions: Service Date/Time: Monday, June 12, 2017 17:59 - CONCLUSION: 1. No acute abnormality or significant interval change. MD Alexander Villanueva VTE Risk Assessment Caprinrosmery VTE Risk Assessment: Mod/High Risk (score >= 2) Caprini Risk Assessment Model Point Value = 1 Point Value = 2 Point Value = 3 Point Value = 5 Age 41-60 Minor surgery BMI > 25 kg/m2 Swollen legs Varicose veins or History of unexplained or recurrent spontaneous Oral contraceptives or hormone replacement Sepsis (< 1 month) Serious lung disease, including pneumonia (< 1 month) Abnormal pulmonary function Acute myocardial infarction Congestive heart failure (< 1 month) History of inflammatory bowel disease Medical patient at bed rest Age 61-74 Arthroscopic surgery Major open surgery (> 45 min) Laparoscopic surgery (> 45 min) Malignancy Confined to bed (> 72 hours) Immobilizing plaster cast Central venous access Age >= 75 History of VTE Family history of VTE Factor V Leiden Prothrombin [id number] Lupus anticoagulant Anticardiolipin antibodies Elevated serum homocysteine Heparin-induced thrombocytopenia Other congenital or acquired thrombophilia Stroke (< 1 month) Elective arthroplasty Hip, pelvis, or leg fracture Acute spinal cord injury (< 1 month) Prophylaxis Regimen Total Risk Factor Score Risk Level Prophylaxis Regimen 0-1 Low Early ambulation 2 Moderate Order ONE of the following: *Sequential Compression Device (SCD) *Heparin 5000 units SQ BID 3-4 Higher Order ONE of the following medications: *Heparin 5000 units SQ TID *Enoxaparin/Lovenox 40 mg SQ daily (WT < 150 kg, CrCl > 30 mL/min) *Enoxaparin/Lovenox 30 mg SQ daily (WT < 150 kg, CrCl > 10-29 mL/min) *Enoxaparin/Lovenox 30 mg SQ BID (WT < 150 kg, CrCl > 30 mL/min) AND/OR *Sequential Compression Device (SCD) 5 or more Highest Order ONE of the following medications: *Heparin 5000 units SQ TID (Preferred with Epidurals) *Enoxaparin/Lovenox 40 mg SQ daily (WT < 150 kg, CrCl > 30 mL/min) *Enoxaparin/Lovenox 30 mg SQ daily (WT < 150 kg, CrCl > 10-29 mL/min) *Enoxaparin/Lovenox 30 mg SQ BID (WT < 150 kg, CrCl > 30 mL/min) AND *Sequential Compression Device (SCD) Assessment and Plan Problem List: (1) Stroke ICD Code: I63.9 - Cerebral infarction, unspecified Status: Acute Plan: Probable CVA/TIA Patient has residual weakness on the right side from a prior CVA but this has gotten acutely worse over the past few days. - Head CT with no acute findings. - MRI/MRA brain. Carotid ultrasound - Appreciate neurology consult. Patient started on Plavix. - PT/OT (2) Hypertension ICD Code: I10 - Hypertension Status: Acute Plan: Continue home dose antihypertensives including amlodipine, losartan, and HCTZ. (3) Diabetes ICD Code: E11.9 - Diabetes Status: Acute Plan: Sliding scale insulin with Accu-Cheks Hemoglobin A1c pending. Physician Certification 2 Midnight Certification Type: Admission for Inpatient Services Order for Inpatient Services The services are ordered in accordance with Medicare regulations or non- Medicare payer requirements, as applicable. In the case of services not specified as inpatient-only, they are appropriately provided as inpatient services in accordance with the 2-midnight benchmark. Estimated LOS (days): 2 days is the estimated time the patient will need to remain in the hospital, assuming treatment plan goals are met and no additional complications. Post-Hospital Plan: Home Problem Qualifiers (1) Stroke: Qualified Codes: I63.9 - Cerebral infarction, unspecified Bradley Hugo MD Jun 13, 2017 09:25
--- NOTE | 2017-06-13 09:46 | PD.CONS ---
History of Present Illness Service Neurology Consult Requested By Medicine Reason for Consult Stroke Primary Care Physician Sara Cowart MD History of Present Illness 72 yo male with hx of left hemispheric stroke in 2003 with mild residual right hemiparesis/hemisensory deficit, admitted to the hospital with acute worsening of right sided symptoms. He was taking 81mg aspirin daily since his last stroke. 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 Also, pt had difficulty ambulating 2/2 RLE weakness. He did not seek medical attention for a few days, but symptoms did improve slightly over that time. He denies any visual disturbance or problems with speech. Pt denies any neck stiffness or recent injuries. He reports his only neurological deficits as acute worsening of previously improved deficits s/p stroke 14 years ago. (Jcarlos Shane) Review of Systems Constitutional: Negative except HPI Eye: Negative Except HPI ENMT: Negative except HPI Respiratory: Negative except HPI Cardiovascular: Negative except HPI Gastrointestinal: Negative except HPI [place]/Lymph: Negative except HPI Musculoskeletal: Negative except HPI Neurologic: Negative except HPI Psychiatric: Negative except HPI All other ROS: ROS reviewed as documented in chart (Jcarlos Shane) Past Family Social History Allergies: Coded Allergies: No Known Allergies (Verified Allergy, Unknown, 06/12/17) Past Medical History Stroke BPH DM Peripheral neuropathy HTN Past Surgical History Appy Active Ordered Medications Current Medications Medications (Trade) Dose Ordered Sig/Earl Route Start Time Stop Time Status Last Admin (NS Flush) 2 ml BID IV FLUSH 06/12/17 21:00 06/12/17 20:34 (NS Flush) 2 ml UNSCH PRN IV FLUSH 06/12/17 19:45 Sodium Chloride 1,000 ml @ 70 mls/hr [id number] IV 06/12/17 19:44 06/12/17 20:30 (Lipitor) 10 mg HS PO 06/12/17 21:00 06/12/17 20:30 (NovoLOG SUPPLEMENTAL SCALE) 1 ACHS SQ 06/12/17 21:00 06/12/17 21:25 (D50w (Vial) Inj) 50 ml UNSCH PRN IV PUSH 06/12/17 19:45 (Glucagon Inj) 1 mg UNSCH PRN OTHER 06/12/17 19:45 (Plavix) 75 mg DAILY PO 06/13/17 09:00 (Norvasc) 5 mg DAILY PO 06/13/17 09:00 (Proscar) 5 mg DAILY PO 06/13/17 09:00 (Neurontin) 300 mg BID PO 06/13/17 09:00 (Flomax) 0.4 mg HS PO 06/13/17 21:00 (Protonix) 40 mg DAILY PO 06/13/17 09:00 (Cozaar) 100 mg DAILY PO 06/13/17 09:00 (Microzide) 12.5 mg DAILY PO 06/13/17 09:00 Family History No known stroke hx, mom in her 30s of uncertain cause Social History never smoker, infrequent alcohol, no drugs, lives with and son (Jcarlos Shane) Exam I&O / VS Vital Signs Date Time Temp Pulse Resp B/P (MAP) Pulse Ox O2 Delivery O2 Flow Rate FiO2 06/13/17 04:00 97.9 82 17 140/80 (100) 96 06/13/17 00:30 67 06/13/17 00:00 98.0 65 18 133/87 (102) 97 06/12/17 22:08 98.1 60 17 148/89 (108) 96 06/12/17 21:49 06/12/17 21:00 95 06/12/17 20:57 175/98 (123) 06/12/17 20:50 95 Room Air 06/12/17 20:30 64 16 179/95 (123) 95 Room Air 06/12/17 18:35 78 18 141/92 (108) 95 Room Air 06/12/17 17:30 95 Room Air 06/12/17 17:01 98.9 93 16 138/84 (102) 93 General: Alert and Oriented, No acute distress Eye: PERRL, EOMI Respiratory: Non-labored respirations, BS equal, Symmetrical expansion Cardiology: Normal rate Musculoskeletal: ROM Neurologic: Alert, Oriented, Normal DTR's Psychiatric: Cooperative, Appropriate mood & affect, Normal judgement Exam Comments A&O x 3, follows commands, right hemiparesis 4/5 throughout, right hemisensory deficit to pinprick, right face diminished pinprick, speech appears fluent (ESL) , right upper mild dysmetria, plantar flexor, MSR symmetric 1+, VFF, EOMI, tongue midline, uvula midline, shoulder shrug equal, no gross facial weakness (Jcarlos Shane) Review/Management Diagnosis/Plan: (1) Stroke ICD Codes: I63.9 - Cerebral infarction, unspecified Status: Acute Plan: Hx of likely left MCA stroke with recurrence CT brain NAICP Check MRI, MRA, CUS, echo Failed low dose aspirin, start Plavix Tele PT/OT/LACTATION SPECIALIST (2) Diabetes ICD Codes: E11.9 - Diabetes Status: Acute Plan: Glycemic control per medical Discussed correction control as a controllable risk factor for stroke (3) Hypertension ICD Codes: I10 - Hypertension Status: Acute Plan: Can allow permissible HTN acutely Discussed bed bug exterminator control (4) Peripheral neuropathy ICD Codes: G62.9 - Polyneuropathy, unspecified Plan: Can continue home Gabapentin (Jcarlos Shane) Daily Summary d/w PA. seen and examine. agree with above. was taking aspirin. changed to plavix. will have cardiology see for loop recorder to r/o afib and consider delaney. vessels nml. lipids in range. (Osbaldo Schilling MD) Problem Qualifiers (1) Stroke: Qualified Codes: I63.9 - Cerebral infarction, unspecified (2) Diabetes: Jcarlos Shane Jun 13, 2017 09:46 Osbaldo Schilling MD Jun 13, 2017 18:31
[2017-06-13] MEDS: LOSARTAN 50 MG TAB PO SCH (10:01)
[2017-06-13] MEDS: PANTOPRAZOLE SOD 40 MG DELAYED RELEASE TAB PO SCH (10:01)
[2017-06-13] MEDS: CLOPIDOGREL 75 MG TAB PO SCH (10:01)
[2017-06-13] MEDS: FINASTERIDE 5 MG TAB PO SCH (10:02)
[2017-06-13 10:54] LABS: CHOLESTEROL/ HDL RATIO 4.51 RATIO; HDL CHOLESTEROL 29.9 MG/DL (40.0-60.0)
--- NOTE | 2017-06-13 11:23 | RADRPT ---
EXAM DATE/TIME: 06/13/2017 10:12 [facility] COMPARISON: No previous studies available for comparison. EXTERNAL COMPARISON : [facility], MRA HEAD ([facility] OF DAY), October 12, 2015 INDICATIONS : Cerebrovascular accident. MEDICAL HISTORY : Stroke. Hypercholesterolemia. Hypertension. Chest pain. BPH. Arthritis. Diabetes. SURGICAL HISTORY : None. ENCOUNTER: Initial ACUITY: 1 day PAIN SCORE: 1/10 LOCATION: Bilateral neck PEAK SYSTOLIC VELOCITIES (cm/sec): ICA/CCA RATIO: Right: 1.2 Left: 0.9 ICA: Right: 61 Left: 47 CCA: Right: 51 Left: 56 ECA: Right: 57 Left: 53 VERTEBRAL: Right: 54 antegrade Left: 31 antegrade Elevated flow velocities and ICA/CCA ratios have been found to correlate with increased degrees of vessel stenosis, calculated as percentage of diameter relative to a normal segment of distal ICA/CCA FINDINGS: RIGHT CAROTID: No significant stenosis is visualized. The waveforms are within normal limits. LEFT CAROTID: No significant stenosis is visualized. The waveforms are within normal limits. VERTEBRAL ARTERIES: Antegrade flow is seen in both vertebral arteries. MISCELLANEOUS: None. CONCLUSION: No evidence of flow-limiting carotid stenosis. Brandon Davis MD on June 13, 2017 at 11:21 Board Certified Radiologist. This report was verified electronically.
--- NOTE | 2017-06-13 13:27 | RADRPT ---
EXAM DATE/TIME: 06/13/2017 12:33 [facility] COMPARISON: MRI BRAIN W/O CONTRAST, December 28, 2016, 3:48. INDICATIONS : Stroke. MEDICAL HISTORY : Cerebrovascular disease. Diabetes mellitus type 2. Hypertension SURGICAL HISTORY : Appendectomy. ENCOUNTER: Subsequent ACUITY: 2 day PAIN SCORE: 0/10 LOCATION: TECHNIQUE: Multiplanar, multisequence MRI of the brain was performed without contrast. FINDINGS: CEREBRUM: Moderate diffuse cerebral atrophy. The ventricles are normal for degree of atrophy. No evidence of m idline shift, mass lesion, hemorrhage or acute infarction. No extraaxial fluid collections are seen. The pituitary gland and suprasellar cistern are normal in configuration. WHITE MATTER: Prominent periventricular and deep white matter T2 prolongation. POSTERIOR FOSSA: The cerebellum and brainstem are intact. The 4th ventricle is midline. The cerebellopontine angle is unremarkable. The cerebellar tonsils are normal in position. DIFFUSION IMAGING: Focal region of restricted diffusion in the left carballo radiata. EXTRACRANIAL: The visualized portions of the orbits and paranasal sinuses are unremarkable. CONCLUSION: 1. Focal region of acute infarction in the left carballo radiata. 2. Prominent small vessel periventricular ischemic white matter demyelination. Bari Mcdermott MD on June 13, 2017 at 13:19 Board Certified Radiologist. This report was verified electronically.
--- NOTE | 2017-06-13 14:11 | RADRPT ---
EXAM DATE/TIME: 06/13/2017 12:33 [facility] COMPARISON: CT BRAIN W/O CONTRAST, June 12, 2017, 19:02. INDICATIONS : Stroke. MEDICAL HISTORY : Cerebrovascular disease. Diabetes mellitus type 2. Hypertension SURGICAL HISTORY : Appendectomy. ENCOUNTER: Subsequent ACUITY: 2 day PAIN SCORE: 0/10 LOCATION: Brain Please note a normal MRA of the brain does not entirely exclude the possibility of a small aneurysm, nor the possibility of distal intracranial vessel disease. TECHNIQUE: 3D time of flight MRA was performed. Source images, multiplanar STS MIP, and 3D volume MIP reconstru ctions were reviewed. FINDINGS: The A1 segment of right anterior cerebral artery is mildly hypoplastic compared to the left. The circ le of Jones vessels are otherwise symmetric, intact and unremarkable with no evidence of major vesse l occlusion. No aneurysm or vascular malformation is identified. CONCLUSION: No acute [place] vascular findings Brandon Davis MD on June 13, 2017 at 13:55 Board Certified Radiologist. This report was verified electronically.
[2017-06-13] MEDS: SODIUM CHLOR 0.9% 1000 ML INJ 1,000 ML IV SCH (16:34)
[2017-06-13 16:52] LABS: HEMOGLOBIN A1C 10.7 % (4.3-6.0)
--- NOTE | 2017-06-13 18:43 | EKG ---
Date Performed: 06/12/2017 Time Performed: 17:36:50 PTAGE: 72 years EKG: Sinus rhythm POSSIBLE LEFT ATRIAL ENLARGEMENT MARKED LEFT AXIS DEVIATION PATTERN CONSISTENT WITH PULMONARY DISEAS E ABNORMAL ECG Since the prior tracing, there has been no significant change PREVIOUS TRACING : 12/28/2016 01.01 DOCTOR: Yary Sauer Interpretating Date/Time 06/13/2017 18:41:44
--- NOTE | 2017-06-13 20:26 | ECHRPT ---
Indication: cva/tia CONCLUSIONS The left ventricular systolic function is low normal with an estimated ejection fraction in the rang e of 50- 55%. Mild concentric left ventricular hypertrophy. Trace mitral valve regurgitation. There is mild tricuspid valve regurgitation. BP: / HR: Rhythm: MEASUREMENTS (Male / Female) Normal Values Technical Quality:Fair 2D ECHO LV Diastolic Diameter PLAX 4.4 cm 4.2 - 5.9 / 3.9 - 5.3 cm LV Systolic Diameter PLAX 3.5 cm IVS Diastolic Thickness 1.3 cm 0.6 - 1.0 / 0.6 - 0.9 cm LVPW Diastolic Thickness 1.1 cm 0.6 - 1.0 / 0.6 - 0.9 cm LV Relative Wall Thickness 0.5 RV Internal Dim ED PLAX 3.5 cm M-MODE Aortic Root Diameter MM 3.0 cm LA Systolic Diameter MM 4.1 cm LA Ao Ratio MM 1.4 AV Cusp Separation MM 2.1 cm DOPPLER LV E' Lateral Velocity 6.7 cm/s LV E' Septal Velocity 6.5 cm/s TR Peak Velocity 227.0 cm/s TR Peak Gradient 20.6 mmHg Right Atrial Pressure 10.0 mmHg Pulmonary Artery Systolic Pressu 30.6 mmHg Right Ventricular Systolic Press 30.6 mmHg FINDINGS LEFT VENTRICLE Normal left ventricular size. The left ventricular systolic function is low normal with an estimated ejection fraction in the rang e of 50- 55%. There was limited left ventricular wall motion assessment due to poor endocardial visualization. Mild concentric left ventricular hypertrophy. RIGHT VENTRICLE Normal right ventricular size LEFT ATRIUM The left atrial size is mildly dilated. RIGHT ATRIUM The right atrial size is normal. ATRIAL SEPTUM Normal atrial septal thickness AORTA The aortic root and proximal ascending aorta are normal in size on limited imaging. MITRAL VALVE Grossly normal mitral valve. Trace mitral valve regurgitation. No mitral valve stenosis. AORTIC VALVE Trileaflet aortic valve. No aortic valve regurgitation. No aortic valve stenosis. TRICUSPID VALVE Grossly normal tricuspid valve. There is mild tricuspid valve regurgitation. The estimated pulmonary arterial pressure is 30.6 mmHg. PULMONARY VALVE No pulmonary valve regurgitation or stenosis. VESSELS The inferior vena cava is normal in size. PERICARDIUM No pericardial effusion. Luis Ramos DO (Electronically Signed) Final Date:13 June 2017 20:25
[2017-06-13] MEDS ORDERED: TAMSULOSIN HCL 0.4 MG CAP PO SCH (21:00)
[2017-06-13] MEDS: ATORVASTATIN 10 MG TAB PO SCH (21:58)
[2017-06-14] VITALS: BP 182/92; PULSE 70; RESP 18; TEMP 97.9; O2SAT 91
[2017-06-14] MEDS ORDERED: ACETAMINOPHEN 325 MG TAB PO PRN
[2017-06-14] MEDS: SODIUM CHLOR 0.9% 1000 ML INJ 1,000 ML IV SCH (00:13)
[2017-06-14 04:00] VITALS: BP 174/99; PULSE 68; RESP 18; TEMP 96.8; O2SAT 95
[2017-06-14 07:30] VITALS: PULSE 65
--- NOTE | 2017-06-14 08:26 | MB ---
cc: EALDIA CARD MD DATE OF CONSULTATION 06/14/2017 REASON FOR CONSULTATION Evaluation for VANDANA and loop recorder. HISTORY OF PRESENT ILLNESS Mr. Sheldon is a 72-year-old man who does have a history of hypertension, hyperlipidemia, and diabetes. He also has a remote history of a stroke in 2003 with complete right-sided weakness and numbness. The patient reports that over the last several days he had some right arm pain. His right side apparently was also feeling weaker. He denies any cardiac complaints such as shortness of breath, chest pain or palpitations. Further workup by the primary team and neurology did reveal that the patient has a history of left MCA stroke with recurrence. Cardiology was subsequently consulted to evaluate for a VANDANA and loop recorder. CURRENT MEDICATIONS Per the record. OUTPATIENT MEDICATIONS Include: 1. Metformin 2. Meloxicam 3. Losartan 4. Hydrochlorothiazide 5. Amlodipine 6. Gabapentin 7. Nexium 8. Glimepiride 9. Januvia 10. Flomax ALLERGIES NO KNOWN DRUG ALLERGIES. SOCIAL HISTORY The patient does not smoke. FAMILY HISTORY Noncontributory REVIEW OF SYSTEMS Except as mentioned in HPI, all 12 systems are negative. PHYSICAL EXAM VITAL SIGNS: 96.8, 68, 18, 174/99. GENERAL: He is an obese man who is in no apparent distress. NECK: His neck is free from JVD. LUNGS: The lungs are decreased, but clear to auscultation. CARDIOVASCULAR: On cardiovascular examination, he has a normal S1 and S2. No murmurs, rubs or gallops were appreciated. ABDOMEN: The abdomen is soft. EXTREMITIES: Extremities are free from edema. EKG shows normal sinus rhythm with left atrial enlargement and left axis deviation. Echocardiogram from 06/13/2017 shows normal LV function and mild LVH. There was no significant valvular disease. Brain MRI does show a focal region of acute infarction in the left carballo radiata with prominent small vessel periventricular ischemic white matter demyelination. Carotid ultrasound did not show any flow-limiting disease. Telemetry - showed normal sinus rhythm. It was negative for any atrial fibrillation. IMPRESSIONS CVA - The patient does have a history of the same. Cardiology has been requested to evaluate the patient for VANDANA. This was discussed with the patient. He is not interested at this time, although he would consider perhaps as an outpatient. Likewise with regard to a loop recorder, the patient is not interested in being transferred for more procedures and simply asked to be discharged home. The patient can follow up as an outpatient where we can reevaluate this. CAD, CVA - as above. The patient does have a remote history of CVA. MRI shows an acute stroke. Hypertension - The patient is undergoing permissive hypertension and BP being managed by the primary team. I will be available on a p.r.n. basis. Juan Veliz/SHARON /7:05 AM /7:51 AM
[2017-06-14] MEDS: INSULIN ASPART SUPPLEMENTAL SCALE SQ SCH ×2 (08:56→13:11)
[2017-06-14] MEDS: SODIUM CHLORIDE 0.9% FLUSH 10 ML FLUSH IV FLUSH SCH (09:00)
[2017-06-14] MEDS ORDERED: HYDROCHLOROTHIAZIDE 25 MG TAB PO SCH (09:00)
[2017-06-14] MEDS: FINASTERIDE 5 MG TAB PO SCH (09:20)
[2017-06-14] MEDS: LOSARTAN 50 MG TAB PO SCH (09:20)
[2017-06-14] MEDS: CLOPIDOGREL 75 MG TAB PO SCH (09:20)
[2017-06-14] MEDS: GABAPENTIN 300 MG CAP PO SCH (09:20)
[2017-06-14] MEDS: PANTOPRAZOLE SOD 40 MG DELAYED RELEASE TAB PO SCH (09:21)
[2017-06-14 10:00] VITALS: BP 168/94; PULSE 64; RESP 16; TEMP 96.5; O2SAT 92
[2017-06-14] MEDS ORDERED: LIPI10TA PO (10:18)
[2017-06-14] MEDS ORDERED: AMLO10 PO (10:18)
[2017-06-14] MEDS ORDERED: PLAV75TA29 PO (10:18)
--- NOTE | 2017-06-14 10:19 | HHI.FF ---
Face to Face Verification Diagnosis: (1) Stroke (2) Hypertension (3) Diabetes Physical Therapy Order: Evaluate and Treat, Improve ambulation, Strength and gait training Occupational Therapy Order: Evaluate and Treat, Improve ADL, Gross motor coordination, Fine motor coordination Home Health Nursing Order: Medical education Medication education-adverse effect Nursing assessment with vital signs I have seen patient Eagle [facility]on on 06/14/17. My clinical findings support the need for the requested home health care services because: Deconditioned w/ increased weakness Need for psychosocial assistance High risk of falls I certify that my clinical findings support that this patient is homebound because: Unsteady gait/balance Bradley Hugo MD Jun 14, 2017 10:19
--- NOTE | 2017-06-14 10:22 | HHI.PR ---
Subjective Remarks Patient reports is feeling great. He wants to go home. 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 No lightheadedness, or headache. Objective Vitals Vital Signs Date Time Temp Pulse Resp B/P (MAP) Pulse Ox O2 Delivery O2 Flow Rate FiO2 06/14/17 10:00 96.5 64 16 168/94 (118) 92 06/14/17 04:00 96.8 68 18 174/99 (124) 95 06/14/17 00:00 97.9 70 18 182/92 (122) 91 06/13/17 20:00 97.7 68 18 161/91 (114) 92 06/13/17 20:00 67 06/13/17 16:00 97.2 65 16 167/86 (113) 93 06/13/17 12:00 97.1 58 18 178/103 (128) 98 I/O 06/13/17 06/13/17 06/13/17 06/14/17 06/14/17 06/14/17 07:00 15:00 23:00 07:00 15:00 23:00 Intake Total 508 ml 1000 ml 600 ml 1177 ml Balance 508 ml 1000 ml 600 ml 1177 ml Intake Oral 600 ml 280 ml IV Total 508 ml 1000 ml 897 ml # Voids 2 3 2 # Bowel Movements 0 Result Diagram: 06/12/17 1755 06/12/17 175 Objective Remarks Awake and alert. Cranial nerves II through XII intact. Right side 4/5 strength. Left side 5/5. Normal speech A/P Problem List: (1) Stroke ICD Code: I63.9 - Cerebral infarction, unspecified Status: Acute Plan: MRI confirmed acute infarct in the left carballo radiata. Patient was followed by neurology. He was started on Plavix in addition to aspirin. Cardiology was consulted to consider loop recorder. However the patient refused to have any further procedures while inpatient. He states he will follow up outpatient. He is discharged home with PT and OT. (2) Hypertension ICD Code: I10 - Hypertension Status: Acute Plan: BP is not optimally controlled. Amlodipine increased to 10 mg daily. He is to continue on losartan/HCTZ. Patient advised to follow-up outpatient with his PCP for further titration of antihypertensives as needed. (3) Diabetes ICD Code: E11.9 - Diabetes Status: Acute Plan: Sliding scale insulin with Accu-Cheks Hemoglobin A1c is 10.7 I advised the patient is blood glucose is not optimally controlled. He would benefit from insulin therapy but he is not willing to use insulin at this time. I advised him to follow up outpatient with his PCP to reconsider Discharge Planning Discharge home in good condition with home health/PT/OT Diet: Diabetic Activity: Regular as tolerated Meds: Per med rec Follow-up with: Neurology and PCP Problem Qualifiers (1) Stroke: Qualified Codes: I63.9 - Cerebral infarction, unspecified (2) Diabetes: Bradley Hugo MD Jun 14, 2017 10:22
== END 2017-06-14 13:34 | disposition home health service (06) | DRG 65 ==
LOC: PHED 16:56 → PHEDA 19:47 → PH3B 21:44
PROVIDERS: ADMIT Family Medicine; ATTEND Family Medicine
DX: I63.512 Cerebral infarction due to unspecified occlusion or stenosis of left middle cerebral artery (principal); I69.351 Hemiplegia and hemiparesis following cerebral infarction affecting right dominant side; E11.42 Type 2 diabetes mellitus with diabetic polyneuropathy; E11.65 Type 2 diabetes mellitus with hyperglycemia; I10 Essential (primary) hypertension; M19.90 Unspecified osteoarthritis, unspecified site; N40.0 Benign prostatic hyperplasia without lower urinary tract symptoms; E78.5 Hyperlipidemia, unspecified; I25.10 Atherosclerotic heart disease of native coronary artery without angina pectoris; Z79.82 Long term (current) use of aspirin; Z79.84 Long term (current) use of oral hypoglycemic drugs
CPT/HCPCS: 70450; 70544; 70551; 71045; 80048; 80061; 81001; 82948; 83036; 84484; 85025; 85610; 86850; 86900; 86901; 93005; 93306; 93880; 96360; 96372; J1815; J7030; J7040

== ENCOUNTER 2017-12-08 09:51 | Observation (INO) ==
[2017-12-08 10:36] LABS: Hematocrit 33.9 % (39.0-51.0); Hemoglobin 10.5 gm/dL (13.0-17.0); Mean Corpuscular HGB Conc 31.1 % (32.0-36.0); Mean Corpuscular Hemoglobin 19.7 pg (27.0-34.0); Mean Corpuscular Volume 63.4 fL (80.0-100.0); Mean Platelet Volume 9.2 fL (7.0-11.0); Platelet Count 126 th/mm3 (150-450); Red Blood Count 5.35 mil/mm3 (4.50-5.90); Red Cell Distribution Width 17.5 % (11.6-17.2); White Blood Count 18.2 th/mm3 (4.0-11.0)
--- NOTE | 2017-12-08 10:40 | ED ---
HPI General Chief complaint: Chest Pain Stated complaint: CHEST PAIN AND HEADACHE [id number] Source: patient Mode of arrival: ambulatory Limitations: no limitations History of Present Illness HPI narrative: 72yo M with PMH of HTN, CVA with right sided residual weakness presents to the ED with c/o left sided chest pain for 2 days. Said he cant explain if it is sharp or dull but it is intermittent, moderate severity. Associated with sob. Denies any fever, n/v, abdominal pain, focal weakness or numbness. said that 4 days ago he was complaining about not being able to see but only lasted about 2 minutes. Also has been having intermittent headache for a week although currently without headache. Related Data Home Medications Medication Instructions Recorded Confirmed atorvastatin 10 mg PO HS 11/09/17 12/08/17 cyanocobalamin (vitamin B-12) 1,000 mcg PO DAILY 11/09/17 12/08/17 finasteride 5 mg PO HS 11/09/17 12/08/17 gabapentin 300 mg PO BID 11/09/17 12/08/17 glimepiride 2 mg PO BID 11/09/17 12/08/17 metformin 1,000 mg PO DAILY 11/09/17 12/08/17 sitagliptin [Januvia] 100 mg PO DAILY 11/09/17 12/08/17 tamsulosin 0.4 mg PO DAILY 11/09/17 12/08/17 amlodipine 5 mg PO HS 12/08/17 12/08/17 carisoprodol 350 mg PO QID PRN 12/08/17 12/08/17 diclofenac sodium [Voltaren] 2 g TOPICAL QID 12/08/17 12/08/17 losartan-hydrochlorothiazide 1 tab PO DAILY 12/08/17 12/08/17 Allergies Allergy/AdvReac Type Severity Reaction Status Date / Time No Known Allergies Allergy Verified 12/08/17 14:49 Review of Systems ROS: all other systems reviewed are negative [facility] Medical History Medical History Hypertension (Acute) Neuropathy (Acute) BPH (benign prostatic hyperplasia) (Acute) CVA (cerebral vascular accident) (Acute) High cholesterol (Acute) Diabetes (Acute) Appendicitis (Acute) Urine retention (Acute) Surgical History Surgical History Hx of cholecystectomy (Acute) History of appendectomy (Acute) History of surgery on arm (Acute) Family History Family History Father History of cancer Social History Social History Substance History: No History of Abuse Second Hand Smoke Exposure: No Smoking Status: Never smoker How Often Do You Have a Drink Containing Alcohol: Never Recent Travel in [facility] within the Last 8 Weeks: No Recent Out of Country Travel within the Last 8 Weeks: No Immunization History Tetanus Immunization: Unsure Hx Influenza Vaccine This Season: No Exam Narrative Exam Narrative: GENERAL: 72yo M in mild distress. SKIN: Focused skin assessment warm/dry. HEAD: Atraumatic. Normocephalic. EYES: Pupils equal and round. No scleral icterus. No injection or drainage. CARDIOVASCULAR: Regular rate and rhythm. No murmur appreciated. RESPIRATORY: No accessory muscle use. Clear to auscultation. Breath sounds equal bilaterally. GASTROINTESTINAL: Abdomen soft, non-tender, nondistended. MUSCULOSKELETAL: No obvious deformities. No clubbing. No cyanosis. Mild lower extremity edema. NEUROLOGICAL: Awake and alert. No obvious cranial nerve deficits. Decreased muscle strength RLE that is not new. Decreased sensation in RLE that is not new. Normal speech. PSYCHIATRIC: Appropriate mood and affect; insight and judgment normal. Course Initial Documented Vital Signs Temperature 97.6 F 12/08/17 09:52 Pulse Rate 112 H 12/08/17 09:52 Respiratory Rate 20 12/08/17 09:52 Blood Pressure 123/68 12/08/17 09:52 Pulse Oximetry 95 12/08/17 09:52 Last Documented Vital Signs Temperature 96.8 F L 12/09/17 04:00 Pulse Rate 91 H 12/09/17 04:00 Respiratory Rate 20 12/09/17 04:00 Blood Pressure 148/90 H 12/09/17 04:00 Pulse Oximetry 94 L 12/09/17 04:00 Medical Decision Making MDM Narrative Medical Screen Exam Complete: Yes Emergency Medical Condition: Yes Lab Data Result diagrams: 12/08/17 10:20 12/08/17 10:20 Lab Results 12/08/17 12/08/17 12/08/17 Range/Units 10:20 10:20 10:20 CBC w Diff Slide review pending WBC 18.2 H (4.0-11.0) th/mm3 RBC 5.35 (4.50-5.90) mil/mm3 Hgb 10.5 L (13.0-17.0) gm/dL Hct 33.9 L (39.0-51.0) % MCV 63.4 L (80.0-100.0) fL MCH 19.7 L (27.0-34.0) pg MCHC 31.1 L (32.0-36.0) % RDW 17.5 H (11.6-17.2) % Plt Count 126 L (150-450) th/mm3 MPV 9.2 (7.0-11.0) fL WBC Differential Manual diff final Seg Neuts % (Manual) 45 (16-70) % Lymphocytes % (Manual) 36 (9-44) % Monocytes % (Manual) 18 H (0-8) % Eosinophils % (Manual) 1 (0-4) % Abs Neuts (Manual) 8.2 H (1.8-7.7) th/mm3 Nucleated RBCs/100 WBC 3 H (0-0) /100 WBC Differential Comment . Platelet Estimate Low L (Normal) Platelet Morphology Normal (Normal) Target Cells 1+ H (None) Tear Drop Cells 1+ H (None) Ovalocytes 1+ H (None) Retic Count (0.4-3.0) % Absolute Retic (20.0-150.0) mil/L Haptoglobin (30-200) mg/dL PT 10.5 (9.8-11.6) sec INR 1.0 Ratio APTT 25.3 (24.3-30.1) sec D-Dimer Quant (PE/DVT) (0.00-0.50) mg/L FEU Sodium 139 (136-145) meq/L Potassium 3.9 (3.5-5.1) meq/L Chloride 104 (98-107) meq/L Carbon Dioxide 26.3 (21.0-32.0) meq/L Anion Gap 9 (5-15) meq/L BUN 30 H (7-18) mg/dL Creatinine 1.40 H (0.60-1.30) mg/dL Estimated GFR 50 L (>89) mL/min POC Glucose (68-110) mg/dl Random Glucose 196 H (74-106) mg/dL Calcium 9.2 (8.5-10.1) mg/dL Magnesium 1.8 (1.5-2.5) mg/dL Iron (65-175) mcg/dL TIBC (250-450) mcg/dL % Saturation (20-50) % Ferritin (26-388) ng/mL Total Bilirubin (0.2-1.0) mg/dL Direct Bilirubin (0.0-0.2) mg/dL Indirect Bilirubin (0.0-0.8) mg/dL AST (15-37) U/L ALT (12-78) U/L Alkaline Phosphatase (45-117) U/L Lactate Dehydrogenase (87-241) U/L Total Creatine Kinase (39-308) U/L Troponin I Less than 0.02 L (0.02-0.05) ng/mL Total Protein (6.4-8.2) g/dL Albumin (3.4-5.0) g/dL Lipase (73-393) U/L Vitamin B12 (193-986) pg/mL Folate (3.1-17.5) ng/mL Urine Color (Yellw/Straw) Urine Clarity (Clear) Urine pH (5.0-8.5) Ur Specific Anita (1.002-1.035) Urine Protein (Neg-Trace) mg/dL Urine Glucose (UA) (Negative) mg/dL Urine Ketones (Negative) mg/dL Urine Occult Blood (Negative) Urine Nitrate (Negative) Urine Bilirubin (Negative) Urine Urobilinogen (Less than 2) mg/dL Ur Leukocyte Esterase (Negative) Urine RBC (0-3) /hpf Urine WBC (0-5) /hpf Ur Squamous Epith Cells (0-5) /hpf Urine Bacteria (None) /hpf Micro UA Comment Urine Culture Comments 12/08/17 12/08/17 12/08/17 Range/Units 10:20 10:20 10:20 CBC w Diff WBC (4.0-11.0) th/mm3 RBC (4.50-5.90) mil/mm3 Hgb (13.0-17.0) gm/dL Hct (39.0-51.0) % MCV (80.0-100.0) fL MCH (27.0-34.0) pg MCHC (32.0-36.0) % RDW (11.6-17.2) % Plt Count (150-450) th/mm3 MPV (7.0-11.0) fL WBC Differential Seg Neuts % (Manual) (16-70) % Lymphocytes % (Manual) (9-44) % Monocytes % (Manual) (0-8) % Eosinophils % (Manual) (0-4) % Abs Neuts (Manual) (1.8-7.7) th/mm3 Nucleated RBCs/100 WBC (0-0) /100 WBC Differential Comment Platelet Estimate (Normal) Platelet Morphology (Normal) Target Cells (None) Tear Drop Cells (None) Ovalocytes (None) Retic Count 2.7 (0.4-3.0) % Absolute Retic 147.2 (20.0-150.0) mil/L Haptoglobin (30-200) mg/dL PT (9.8-11.6) sec INR Ratio APTT (24.3-30.1) sec D-Dimer Quant (PE/DVT) 4.99 H (0.00-0.50) mg/L FEU Sodium (136-145) meq/L Potassium (3.5-5.1) meq/L Chloride (98-107) meq/L Carbon Dioxide (21.0-32.0) meq/L Anion Gap (5-15) meq/L BUN (7-18) mg/dL Creatinine (0.60-1.30) mg/dL Estimated GFR (>89) mL/min POC Glucose (68-110) mg/dl Random Glucose (74-106) mg/dL Calcium (8.5-10.1) mg/dL Magnesium (1.5-2.5) mg/dL Iron (65-175) mcg/dL TIBC (250-450) mcg/dL % Saturation (20-50) % Ferritin (26-388) ng/mL Total Bilirubin 1.3 H (0.2-1.0) mg/dL Direct Bilirubin 0.5 H (0.0-0.2) mg/dL Indirect Bilirubin 0.8 (0.0-0.8) mg/dL AST 66 H (15-37) U/L ALT 60 (12-78) U/L Alkaline Phosphatase 110 (45-117) U/L Lactate Dehydrogenase (87-241) U/L Total Creatine Kinase (39-308) U/L Troponin I (0.02-0.05) ng/mL Total Protein 6.9 (6.4-8.2) g/dL Albumin 2.9 L (3.4-5.0) g/dL Lipase 514 H (73-393) U/L Vitamin B12 (193-986) pg/mL Folate (3.1-17.5) ng/mL Urine Color (Yellw/Straw) Urine Clarity (Clear) Urine pH (5.0-8.5) Ur Specific Anita (1.002-1.035) Urine Protein (Neg-Trace) mg/dL Urine Glucose (UA) (Negative) mg/dL Urine Ketones (Negative) mg/dL Urine Occult Blood (Negative) Urine Nitrate (Negative) Urine Bilirubin (Negative) Urine Urobilinogen (Less than 2) mg/dL Ur Leukocyte Esterase (Negative) Urine RBC (0-3) /hpf Urine WBC (0-5) /hpf Ur Squamous Epith Cells (0-5) /hpf Urine Bacteria (None) /hpf Micro UA Comment Urine Culture Comments 12/08/17 12/08/17 12/08/17 Range/Units 16:21 16:44 16:44 CBC w Diff WBC (4.0-11.0) th/mm3 RBC (4.50-5.90) mil/mm3 Hgb (13.0-17.0) gm/dL Hct (39.0-51.0) % MCV (80.0-100.0) fL MCH (27.0-34.0) pg MCHC (32.0-36.0) % RDW (11.6-17.2) % Plt Count (150-450) th/mm3 MPV (7.0-11.0) fL WBC Differential Seg Neuts % (Manual) (16-70) % Lymphocytes % (Manual) (9-44) % Monocytes % (Manual) (0-8) % Eosinophils % (Manual) (0-4) % Abs Neuts (Manual) (1.8-7.7) th/mm3 Nucleated RBCs/100 WBC (0-0) /100 WBC Differential Comment Platelet Estimate (Normal) Platelet Morphology (Normal) Target Cells (None) Tear Drop Cells (None) Ovalocytes (None) Retic Count (0.4-3.0) % Absolute Retic (20.0-150.0) mil/L Haptoglobin 157 (30-200) mg/dL PT (9.8-11.6) sec INR Ratio APTT (24.3-30.1) sec D-Dimer Quant (PE/DVT) (0.00-0.50) mg/L FEU Sodium (136-145) meq/L Potassium (3.5-5.1) meq/L Chloride (98-107) meq/L Carbon Dioxide (21.0-32.0) meq/L Anion Gap (5-15) meq/L BUN (7-18) mg/dL Creatinine (0.60-1.30) mg/dL Estimated GFR (>89) mL/min POC Glucose (68-110) mg/dl Random Glucose (74-106) mg/dL Calcium (8.5-10.1) mg/dL Magnesium (1.5-2.5) mg/dL Iron 57 L (65-175) mcg/dL TIBC 329 (250-450) mcg/dL % Saturation 17.3 L (20-50) % Ferritin 399 H (26-388) ng/mL Total Bilirubin (0.2-1.0) mg/dL Direct Bilirubin (0.0-0.2) mg/dL Indirect Bilirubin (0.0-0.8) mg/dL AST (15-37) U/L ALT (12-78) U/L Alkaline Phosphatase (45-117) U/L Lactate Dehydrogenase 326 H (87-241) U/L Total Creatine Kinase 24 L (39-308) U/L Troponin I Less than 0.02 L (0.02-0.05) ng/mL Total Protein (6.4-8.2) g/dL Albumin (3.4-5.0) g/dL Lipase (73-393) U/L Vitamin B12 632 (193-986) pg/mL Folate 10.4 (3.1-17.5) ng/mL Urine Color Yellow (Yellw/Straw) Urine Clarity Clear (Clear) Urine pH 7.5 (5.0-8.5) Ur Specific Anita Less/equal 1.005 (1.002-1.035) Urine Protein Negative (Neg-Trace) mg/dL Urine Glucose (UA) Negative (Negative) mg/dL Urine Ketones Negative (Negative) mg/dL Urine Occult Blood Trace (Negative) Urine Nitrate Positive H (Negative) Urine Bilirubin Negative (Negative) Urine Urobilinogen 1.0 (Less than 2) mg/dL Ur Leukocyte Esterase Negative (Negative) Urine RBC (0-3) /hpf Urine WBC 0-5 (0-5) /hpf Ur Squamous Epith Cells (0-5) /hpf Urine Bacteria Few H (None) /hpf Micro UA Comment Cath-culture ind Urine Culture Comments Cath-cult indicated 12/08/17 12/08/17 12/08/17 Range/Units 17:07 18:07 20:30 CBC w Diff WBC (4.0-11.0) th/mm3 RBC (4.50-5.90) mil/mm3 Hgb (13.0-17.0) gm/dL Hct (39.0-51.0) % MCV (80.0-100.0) fL MCH (27.0-34.0) pg MCHC (32.0-36.0) % RDW (11.6-17.2) % Plt Count (150-450) th/mm3 MPV (7.0-11.0) fL WBC Differential Seg Neuts % (Manual) (16-70) % Lymphocytes % (Manual) (9-44) % Monocytes % (Manual) (0-8) % Eosinophils % (Manual) (0-4) % Abs Neuts (Manual) (1.8-7.7) th/mm3 Nucleated RBCs/100 WBC (0-0) /100 WBC Differential Comment Platelet Estimate (Normal) Platelet Morphology (Normal) Target Cells (None) Tear Drop Cells (None) Ovalocytes (None) Retic Count (0.4-3.0) % Absolute Retic (20.0-150.0) mil/L Haptoglobin (30-200) mg/dL PT (9.8-11.6) sec INR Ratio APTT (24.3-30.1) sec D-Dimer Quant (PE/DVT) (0.00-0.50) mg/L FEU Sodium (136-145) meq/L Potassium (3.5-5.1) meq/L Chloride (98-107) meq/L Carbon Dioxide (21.0-32.0) meq/L Anion Gap (5-15) meq/L BUN (7-18) mg/dL Creatinine (0.60-1.30) mg/dL Estimated GFR (>89) mL/min POC Glucose 64 L 156 H (68-110) mg/dl Random Glucose (74-106) mg/dL Calcium (8.5-10.1) mg/dL Magnesium (1.5-2.5) mg/dL Iron (65-175) mcg/dL TIBC (250-450) mcg/dL % Saturation (20-50) % Ferritin (26-388) ng/mL Total Bilirubin (0.2-1.0) mg/dL Direct Bilirubin (0.0-0.2) mg/dL Indirect Bilirubin (0.0-0.8) mg/dL AST (15-37) U/L ALT (12-78) U/L Alkaline Phosphatase (45-117) U/L Lactate Dehydrogenase (87-241) U/L Total Creatine Kinase (39-308) U/L Troponin I (0.02-0.05) ng/mL Total Protein (6.4-8.2) g/dL Albumin (3.4-5.0) g/dL Lipase (73-393) U/L Vitamin B12 (193-986) pg/mL Folate (3.1-17.5) ng/mL Urine Color Yellow (Yellw/Straw) Urine Clarity Clear (Clear) Urine pH 6.0 (5.0-8.5) Ur Specific Anita Less/equal 1.005 (1.002-1.035) Urine Protein Negative (Neg-Trace) mg/dL Urine Glucose (UA) Negative (Negative) mg/dL Urine Ketones Negative (Negative) mg/dL Urine Occult Blood Small H (Negative) Urine Nitrate Negative (Negative) Urine Bilirubin Negative (Negative) Urine Urobilinogen 2.0 H (Less than 2) mg/dL Ur Leukocyte Esterase Small H (Negative) Urine RBC 0-3 (0-3) /hpf Urine WBC 0-5 (0-5) /hpf Ur Squamous Epith Cells 0-5 (0-5) /hpf Urine Bacteria (None) /hpf Micro UA Comment Cath-culture not ind Urine Culture Comments Cath-cult not ind 12/08/17 12/08/17 Range/Units 21:14 22:30 CBC w Diff WBC (4.0-11.0) th/mm3 RBC (4.50-5.90) mil/mm3 Hgb (13.0-17.0) gm/dL Hct (39.0-51.0) % MCV (80.0-100.0) fL MCH (27.0-34.0) pg MCHC (32.0-36.0) % RDW (11.6-17.2) % Plt Count (150-450) th/mm3 MPV (7.0-11.0) fL WBC Differential Seg Neuts % (Manual) (16-70) % Lymphocytes % (Manual) (9-44) % Monocytes % (Manual) (0-8) % Eosinophils % (Manual) (0-4) % Abs Neuts (Manual) (1.8-7.7) th/mm3 Nucleated RBCs/100 WBC (0-0) /100 WBC Differential Comment Platelet Estimate (Normal) Platelet Morphology (Normal) Target Cells (None) Tear Drop Cells (None) Ovalocytes (None) Retic Count (0.4-3.0) % Absolute Retic (20.0-150.0) mil/L Haptoglobin (30-200) mg/dL PT (9.8-11.6) sec INR Ratio APTT (24.3-30.1) sec D-Dimer Quant (PE/DVT) (0.00-0.50) mg/L FEU Sodium (136-145) meq/L Potassium (3.5-5.1) meq/L Chloride (98-107) meq/L Carbon Dioxide (21.0-32.0) meq/L Anion Gap (5-15) meq/L BUN (7-18) mg/dL Creatinine (0.60-1.30) mg/dL Estimated GFR (>89) mL/min POC Glucose 295 H (68-110) mg/dl Random Glucose (74-106) mg/dL Calcium (8.5-10.1) mg/dL Magnesium (1.5-2.5) mg/dL Iron (65-175) mcg/dL TIBC (250-450) mcg/dL % Saturation (20-50) % Ferritin (26-388) ng/mL Total Bilirubin (0.2-1.0) mg/dL Direct Bilirubin (0.0-0.2) mg/dL Indirect Bilirubin (0.0-0.8) mg/dL AST (15-37) U/L ALT (12-78) U/L Alkaline Phosphatase (45-117) U/L Lactate Dehydrogenase (87-241) U/L Total Creatine Kinase 27 L (39-308) U/L Troponin I Less than 0.02 L (0.02-0.05) ng/mL Total Protein (6.4-8.2) g/dL Albumin (3.4-5.0) g/dL Lipase (73-393) U/L Vitamin B12 (193-986) pg/mL Folate (3.1-17.5) ng/mL Urine Color (Yellw/Straw) Urine Clarity (Clear) Urine pH (5.0-8.5) Ur Specific Anita (1.002-1.035) Urine Protein (Neg-Trace) mg/dL Urine Glucose (UA) (Negative) mg/dL Urine Ketones (Negative) mg/dL Urine Occult Blood (Negative) Urine Nitrate (Negative) Urine Bilirubin (Negative) Urine Urobilinogen (Less than 2) mg/dL Ur Leukocyte Esterase (Negative) Urine RBC (0-3) /hpf Urine WBC (0-5) /hpf Ur Squamous Epith Cells (0-5) /hpf Urine Bacteria (None) /hpf Micro UA Comment Urine Culture Comments Imaging Data Radiologist's impression: Chest CTA 12/08/17 00:00 CONCLUSION: 1. No CT evidence for pulmonary artery embolism as questioned. 2. Very small simple appearing right-sided pleural effusion with associated compressive atelectasis at the right lung base. 3. Prominent coronary artery calcifications. 4. Multiple anterior pericardial, mediastinal, right hilar and superior paraesophageal lymph nodes measuring up to 14 mm. Nodes are otherwise primarily subcentimeter in size and are most notable for number. Although nonspecific, differential considerations include chronic lymphoproliferative disorder/ lymphoma. Clinical correlation is recommended. Chest X-Ray 12/08/17 10:22 CONCLUSION: Mild basilar atelectasis. No significant change from May. Head CT 12/08/17 10:22 CONCLUSION: 1. Microvascular ischemic demyelinative change. 2. No acute abnormality seen. Stable compared to previous examination. . Abdomen/Pelvis CT 12/08/17 14:35 CONCLUSION: 1. Splenic enlargement to 16.5 cm with heterogeneous appearance and slightly lobulated contour suspicious for a splenic mass. Differential diagnosis includes lymphoma although hematoma or acute infarction could give this appearance. 2. Abdominal adenopathy in the retroperitoneal region with largest lymph node precaval measuring up to 3.9 x 1.6 cm on image #38. 3. Small right pleural effusion with right basilar atelectasis. 4. Ortiz catheter in decompressed bladder with enlarged prostate. ECG Data EKG Prior to Arrival: No Attestation: I personally reviewed and interpreted this ECG as follows: Interpretation: Sinus tachycardia at 106bpm. LAD. No ST segment elevation or depression. Discharge Plan Discharge Disposition Patient Disposition: 30 Still Patient Discharge Details Diagnosis: Chest pain Physicians Team ED Provider: Halima Gr Primary Care Provider: Sara Cowart Attending Provider: Agustin Arriola Other Providers: Katie Barclay Status ED Status: Left Department Discharge Information Discharge Date/Time: 12/08/17 13:56
[2017-12-08 10:43] LABS: Chloride 104 meq/L (98-107); Potassium 3.9 meq/L (3.5-5.1); Sodium 139 meq/L (136-145)
[2017-12-08 10:45] LABS: Calcium 9.2 mg/dL (8.5-10.1)
[2017-12-08 10:46] LABS: Anion Gap 9 meq/L (5-15); Blood Urea Nitrogen 30 mg/dL (7-18); Carbon Dioxide 26.3 meq/L (21.0-32.0); Glucose,Random 196 mg/dL (74-106); Magnesium 1.8 mg/dL (1.5-2.5)
[2017-12-08 10:49] LABS: Glomerular Filtration Rate 50 mL/min (>89)
[2017-12-08 11:00] LABS: Activated Partial Thrombo Time 25.3 sec (24.3-30.1); Prothrombin Time 10.5 sec (9.8-11.6)
--- NOTE | 2017-12-08 11:03 | XR ---
EXAM DATE: 12/08/2017 10:55 AM EDT AGE/SEX: 72 years / Male INDICATIONS: Chest pain CLINICAL DATA: This is the patient's initial encounter. Patient reports that signs and symptoms have been present for 2 days and indicates a pain score of 5/10. MEDICAL/SURGICAL HISTORY: . Cerebrovascular disease. Diabetes mellitus type 2. Hypertension Ap pendectomy. COMPARISON: [facility], CHEST SINGLE AP, 06/12/2017. . FINDINGS: There is mild basilar airspace disease. No significant effusion. No pneumothorax. Heart size mildly e nlarged. Mildly tortuous aorta. CONCLUSION: Mild basilar atelectasis. No significant change from May. Electronically signed by: Ellis Pelayo MD 12/08/2017 11:01 AM EDT
--- NOTE | 2017-12-08 11:12 | CT ---
EXAM DATE: 12/08/2017 11:06 AM EDT AGE/SEX: 72 years / Male INDICATIONS: Intermittent headaches x 1 week. CLINICAL DATA: This is the patient's initial encounter. Patient reports that signs and symptoms have been present for 1 day and indicates a pain score of 1/10. MEDICAL/SURGICAL HISTORY: Cerebrovascular disease. Diabetes. Hypertension. Cholecystectomy. RADIATION DOSE: 58.79 CTDI (mGy) COMPARISON: [facility], CT BRAIN W/O CONTRAST, 06/12/2017. . TECHNIQUE: CT of the head without contrast. Using automated exposure control and adjustment of the mA and/or kV according to patient size, radiation dose was kept as low as reasonably achievable to ob tain optimal diagnostic quality images. DICOM format image data is available electronically for revi ew and comparison. FINDINGS: Cerebrum: The ventricles are normal for age. No evidence of midline shift, mass lesion, hemorrhage or acute infarction. No extraaxial fluid collections are seen. There is decreased attenuation in the periventricular white matter suggesting microvascular ischemic demyelinative change. This is stable compared to a previous dated 06/12/2017. Posterior Fossa: The cerebellum and brainstem are intact. The 4th ventricle is midline. The cerebe llopontine angle is unremarkable. Extracranial: The visualized portion of the orbits is intact. Skull: The calvaria is intact. No evidence of skull fracture. CONCLUSION: 1. Microvascular ischemic demyelinative change. 2. No acute abnormality seen. Stable compared to previous examination. . Electronically signed by: Dusty Hall MD 12/08/2017 11:11 AM EDT
[2017-12-08 11:15] LABS: Eosinophils 1 % (0-4); Lymphocytes 36 % (9-44); Monocytes 18 % (0-8); Ovalocytes 1+; Platelet Morphology Normal (Normal); Tallied Nucleated RBC 3 (0-0); Target Cells 1+; Tear Drop Cells 1+
[2017-12-08] MEDS ORDERED: Sodium Chlor 0.9% Inj 500 ML IV.SIG ONE (11:34)
[2017-12-08] MEDS ORDERED: Temazepam 15 MG Capsule PO PRN (13:24)
[2017-12-08] MEDS ORDERED: Bisacodyl 10 MG Supp RECTAL PRN (13:24)
[2017-12-08] MEDS ORDERED: Acetaminophen 325 MG Tablet PO PRN (13:24)
[2017-12-08] MEDS ORDERED: Dextrose 50% in Water 50 ML Vial IV.PUSH PRN (13:29)
[2017-12-08 14:06] LABS: Albumin 2.9 g/dL (3.4-5.0)
[2017-12-08 14:10] LABS: Total Protein 6.9 g/dL (6.4-8.2)
[2017-12-08] MEDS: Sod Chloride 0.9% Inj 1,000 ML IV.CONT SCH (14:25)
--- NOTE | 2017-12-08 15:03 | P.HP ---
History of Present Illness Primary Care Physician: Sara Cowart MD Chief Complaint: Chest pain, shortness of breath History of Present Illness: 72-year-old male with known history of hypertension, hyperlipidemia, diabetes, recent diagnosis of urinary retention with indwelling Ortiz who presented to the hospital because of chest/abdominal pain. Patient states that over the last 5 days he has been experiencing almost persistent left-sided chest pain, epigastric/left upper abdominal pain that comes and crescendo type pain which he states is a 6/10 on a pain scale and last usually like 5 minutes at a time. Is not associated with any exertion. Patient denies any nausea, vomiting. He indicates that he has had shortness of breath with the discomfort. Patient is being managed by outpatient urologist for urinary retention. He does have a leg bag at this time and is supposed to follow-up with Dr. Chaudhry next week. Upon evaluating patient he is resting comfortably in the bed. Pain is reproducible on palpation. It was recommended by the ER physician the patient be observed in the hospital for further evaluation and management. - Diagnosis (1) Systemic inflammatory response syndrome (2) Abdominal pain (3) Leukocytosis (4) Thrombocytopenia (5) Microcytic anemia (6) Acute renal failure superimposed on stage 2 chronic kidney disease (7) Chest pain Review of Systems All other systems reviewed negative except as stated in HPI Cardiovascular: Reports chest pain Respiratory: Reports shortness of breath, Reports shortness of breath with activity Gastrointestinal: Reports abdominal pain PMFSH - History History Provided By: Patient - Medical History Medical History: Medical History (Last Updated 12/08/17 @ 14:49 by Merlyn Singleton RN) Hypertension (Acute) Neuropathy (Acute) BPH (benign prostatic hyperplasia) (Acute) CVA (cerebral vascular accident) (Acute) High cholesterol (Acute) Diabetes (Acute) Appendicitis Urine retention - Surgical History Surgical History: Surgical History (Last Updated 12/08/17 @ 15:05 by TOM Fitzpatrick) Hx of cholecystectomy (Acute) History of appendectomy History of surgery on arm - Family History Family History: Family History (Last Updated 12/08/17 @ 15:01 by TOM Fitzpatrick) Father History of cancer - Tobacco History Second Hand Smoke Exposure: No Smoking Status: Never smoker - Alcohol History How Often Do You Have a Drink Containing Alcohol: Never - Substance Use History Substance History: No History of Abuse - Travel History Recent Travel in the [place] Within the Last 8 Weeks: No Recent Travel Out of the Country Within the Last 8 Weeks: No - Immunization History Tetanus Immunization: Unsure Hx Influenza Vaccine This Season: Yes Medications and Allergies Active Medications: Active Medications Acetaminophen (Tylenol) 650 mg PO Q4H PRN PRN Reason: Temp > 100.4 Al Hydroxide/Mg Hydroxide (Milk Of Magnesia Liq) 30 ml PO Q12H PRN PRN Reason: Mild Constipation Bisacodyl (Dulcolax Supp) 10 mg RECTAL DAILY PRN PRN Reason: SEVERE CONSITIPATION Dextrose (D50w Vial) 50 ml IV.PUSH UNSCH PRN PRN Reason: PER HYPOGLYCEMIA PROTOCOL Glucagon (Glucagon Inj) 1 mg OTHER PRN PRN PRN Reason: for Hypoglycemia Protocol Sodium Chloride (Ns Inj) 1,000 mls @ 100 mls/hr IV.CONT .Q10H HERON Last Admin: 12/08/17 14:25 Dose: 100 mls/hr Insulin Aspart (Novolog Insulin Correctional Sugar Inj) 0 unit SQ ACHS HERON; Protocol Lactulose (Lactulose Liq) 30 ml PO DAILY PRN PRN Reason: SEVERE CONSITIPATION Nitroglycerin (Nitrostat Sl) 0.4 mg SL Q5M PRN PRN Reason: CHEST PAIN Ondansetron HCl (Zofran Inj) 4 mg IV.PUSH Q6H PRN PRN Reason: NAUSEA OR VOMITING Senna/Docusate Sodium (Cheyanne-Colace) 1 tab PO BID HERON Sennosides (Senokot) 17.2 mg PO Q12H PRN PRN Reason: Moderate Constipation Sodium Chloride (Ns Flush) 2 ml IV.FLUSH UNSCH PRN PRN Reason: FLUSH AFTER USING IV ACCESS Temazepam (Restoril) 15 mg PO HS PRN PRN Reason: INSOMNIA Allergies Allergy/AdvReac Type Severity Reaction Status Date / Time No Known Allergies Allergy Verified 12/08/17 14:49 Home Medications Medication Instructions Recorded Confirmed Type atorvastatin 10 mg PO HS 11/09/17 12/08/17 History cyanocobalamin (vitamin B-12) 1,000 mcg PO DAILY 11/09/17 12/08/17 History finasteride 5 mg PO HS 11/09/17 12/08/17 History gabapentin 300 mg PO BID 11/09/17 12/08/17 History glimepiride 2 mg PO BID 11/09/17 12/08/17 History metformin 1,000 mg PO DAILY 11/09/17 12/08/17 History sitagliptin [Januvia] 100 mg PO DAILY 11/09/17 12/08/17 History tamsulosin 0.4 mg PO DAILY 11/09/17 12/08/17 History amlodipine 5 mg PO HS 12/08/17 12/08/17 History carisoprodol 350 mg PO QID PRN 12/08/17 12/08/17 History diclofenac sodium [Voltaren] 2 g TOPICAL QID 12/08/17 12/08/17 History losartan-hydrochlorothiazide 1 tab PO DAILY 12/08/17 12/08/17 History Exam Vital signs: Vital Signs 12/08/17 09:52 12/08/17 10:25 12/08/17 11:26 Temperature 97.6 F Pulse Rate 112 H 99 H 91 H Respiratory Rate 20 18 20 Blood Pressure 123/68 135/73 110/67 Pulse Oximetry 95 95 95 12/08/17 12:15 12/08/17 12:42 Temperature Pulse Rate 85 Respiratory Rate 18 Blood Pressure 121/71 101/66 Pulse Oximetry 94 L Intake & Output 12/07/17 12/08/17 12/08/17 18:59 06:59 18:59 Intake Total 500 / 500 Balance 500 / 500 Weight 86.7 kg Intake: IV 500 / 500 NS Inj 500 ML @ Wide Open IV. 500 / 500 SIG BOLUS ONE Rx#:[id number] Narrative: GENERAL: Well-developed, well-nourished, in no acute distress. alert and orientated HEENT: Head is normocephalic without any lesions or masses noted. Facial features are symmetric. Eyes: Pupils equal round reactive to light. Extraocular muscles are intact. Conjunctivae were clear. Oropharyngeal: Pharynx without any erythema edema. Tongue is midline without deviation. Buccal mucosa is moist without any masses or lesions NECK: Supple without any masses. Trachea midline no deviation. No JVD, no bruits are appreciated CARDIAC: Regular rhythm, regular rate. S1/S2 are heard. No murmurs gallops or rubs. Reproducible palpable tenderness noted over the left lateral lower rib cage. LUNGS: Clear to auscultation bilaterally. No wheeze, rhonchi or rales. No use of accessory muscles on inspiration or expiration. ABDOMEN: Soft, epigastric abdominal tenderness. Nondistended. Bowel sounds heard in all 4 quadrants. No organomegaly or masses. Negative rebound, negative guarding EXTREMITIES: No edema, pulses are equal bilaterally. No cyanosis or clubbing NEUROLOGY: Mood and affect appear appropriate. Cranial nerves II through XII grossly intact. Muscle strength 5/5 in upper and lower extremities bilaterally. Deep tendon reflexes are 2+ in upper and lower extremities bilaterally. Results - Labs CBC & Chem 7: 12/08/17 10:20 12/08/17 10:20 Labs: Laboratory Results - last 24 hr 12/08/17 12/08/17 12/08/17 10:20 10:20 10:20 CBC w Diff Slide review pending WBC 18.2 H RBC 5.35 Hgb 10.5 L Hct 33.9 L MCV 63.4 L MCH 19.7 L MCHC 31.1 L RDW 17.5 H Plt Count 126 L MPV 9.2 WBC Differential Manual diff final Seg Neuts % (Manual) 45 Lymphocytes % (Manual) 36 Monocytes % (Manual) 18 H Eosinophils % (Manual) 1 Abs Neuts (Manual) 8.2 H Nucleated RBCs/100 WBC 3 H Differential Comment . Platelet Estimate Low L Platelet Morphology Normal Target Cells 1+ H Tear Drop Cells 1+ H Ovalocytes 1+ H PT 10.5 INR 1.0 APTT 25.3 D-Dimer Quant (PE/DVT) Sodium 139 Potassium 3.9 Chloride 104 Carbon Dioxide 26.3 Anion Gap 9 BUN 30 H Creatinine 1.40 H Estimated GFR 50 L Random Glucose 196 H Calcium 9.2 Magnesium 1.8 Total Bilirubin Direct Bilirubin Indirect Bilirubin AST ALT Alkaline Phosphatase Troponin I Less than 0.02 L Total Protein Albumin Lipase 12/08/17 12/08/17 10:20 10:20 CBC w Diff WBC RBC Hgb Hct MCV MCH MCHC RDW Plt Count MPV WBC Differential Seg Neuts % (Manual) Lymphocytes % (Manual) Monocytes % (Manual) Eosinophils % (Manual) Abs Neuts (Manual) Nucleated RBCs/100 WBC Differential Comment Platelet Estimate Platelet Morphology Target Cells Tear Drop Cells Ovalocytes PT INR APTT D-Dimer Quant (PE/DVT) 4.99 H Sodium Potassium Chloride Carbon Dioxide Anion Gap BUN Creatinine Estimated GFR Random Glucose Calcium Magnesium Total Bilirubin 1.3 H Direct Bilirubin 0.5 H Indirect Bilirubin 0.8 AST 66 H ALT 60 Alkaline Phosphatase 110 Troponin I Total Protein 6.9 Albumin 2.9 L Lipase 514 H - Imaging Impressions Chest X-Ray 12/08/17 10:22 CONCLUSION: Mild basilar atelectasis. No significant change from May. Head CT 12/08/17 10:22 CONCLUSION: 1. Microvascular ischemic demyelinative change. 2. No acute abnormality seen. Stable compared to previous examination. . Caprini VTE Risk Assessment Caprini VTE Risk Assessment: Moderate/High Risk (score >= 2) Caprini Risk Assessment Model: Point Value = 1 Point Value = 2 Point Value = 3 Point Value = 5 Age 41-60 Minor surgery BMI > 25 kg/m2 Swollen legs Varicose veins or History of unexplained or recurrent spontaneous Oral contraceptives or hormone replacement Sepsis (< 1 month) Serious lung disease, including pneumonia (< 1 month) Abnormal pulmonary function Acute myocardial infarction Congestive heart failure (< 1 month) History of inflammatory bowel disease Medical patient at bed rest Age 61-74 Arthroscopic surgery Major open surgery (> 45 min) Laparoscopic surgery (> 45 min) Malignancy Confined to bed (> 72 hours) Immobilizing plaster cast Central venous access Age >= 75 History of VTE Family history of VTE Factor V Leiden Prothrombin [id number] Lupus anticoagulant Anticardiolipin antibodies Elevated serum homocysteine Heparin-induced thrombocytopenia Other congenital or acquired thrombophilia Stroke (< 1 month) Elective arthroplasty Hip, pelvis, or leg fracture Acute spinal cord injury (< 1 month) Prophylaxis Regimen: Total Risk Factor Score Risk Level Prophylaxis Regimen 0-1 Low Early ambulation 2 Moderate Order ONE of the following: *Sequential Compression Device (SCD) *Heparin 5000 units SQ BID 3-4 Higher Order ONE of the following medications: *Heparin 5000 units SQ TID *Enoxaparin/Lovenox 40 mg SQ daily (WT < 150 kg, CrCl > 30 mL/min) *Enoxaparin/Lovenox 30 mg SQ daily (WT < 150 kg, CrCl > 10-29 mL/min) *Enoxaparin/Lovenox 30 mg SQ BID (WT < 150 kg, CrCl > 30 mL/min) AND/OR *Sequential Compression Device (SCD) 5 or more Highest Order ONE of the following medications: *Heparin 5000 units SQ TID (Preferred with Epidurals) *Enoxaparin/Lovenox 40 mg SQ daily (WT < 150 kg, CrCl > 30 mL/min) *Enoxaparin/Lovenox 30 mg SQ daily (WT < 150 kg, CrCl > 10-29 mL/min) *Enoxaparin/Lovenox 30 mg SQ BID (WT < 150 kg, CrCl > 30 mL/min) AND *Sequential Compression Device (SCD) Assessment and Plan - Assessment (1) Systemic inflammatory response syndrome Code(s): R65.10 - Systemic inflammatory response syndrome (SIRS) of non- infectious origin without acute organ dysfunction Status: Acute (2) Abdominal pain Code(s): R10.9 - Unspecified abdominal pain Status: Acute (3) Leukocytosis Code(s): D72.829 - Elevated white blood cell count, unspecified Status: Acute (4) Thrombocytopenia Code(s): D69.6 - Thrombocytopenia, unspecified Status: Acute (5) Microcytic anemia Code(s): D50.9 - Iron deficiency anemia, unspecified Status: Acute (6) Acute renal failure superimposed on stage 2 chronic kidney disease Code(s): N17.9 - Acute kidney failure, unspecified; N18.2 - Chronic kidney disease, stage 2 (mild) Status: Acute (7) Chest pain Code(s): R07.9 - Chest pain, unspecified Status: Acute - Plan Systemic inflammatory response syndrome -Patient meets criteria with leukocytosis, tachycardia, no infectious source has been identified at this time -We will need to obtain urinalysis, blood cultures -Chest x-ray does not indicate any acute abnormality -CT scans do not indicate any infection source Chest pain/abdominal pain -No significant findings were appreciated with ER workup. Further testing to include LFTs, lipase, CT of the abdomen, pulmonary angiogram were requested for further evaluation and management of the patient's presenting symptoms -Laboratory studies do indicate mild liver enzyme elevation as well as lipase elevation -Pulmonary angiogram was performed which did show multiple pericardial/ mediastinal/right hilar and superior paraesophageal lymph nodes measuring up to 14 mm. Although nonspecific differential considerations include chronic lymphoproliferative disorder/lymphoma. -CT abdomen was performed which did show splenic enlargement to 16.5 cm with slightly lobulated contour suspicious for a splenic mass. Differential would include lymphoma, hematoma or acute infarct patient. Also abdominal adenopathy in the retroperitoneal region with largest lymph node pre-caval measuring up to 3.9 x 1.6 cm. -Additional clinical data leukocytosis, thrombocytopenia, microcytic anemia -Oncology consult for further evaluation and management -Patient will require lymph node biopsy for definitive diagnosis. Microcytic anemia -Obtain iron studies Thrombocytopenia -Follow CBC Acute on chronic kidney disease stage II -Continue IV fluids -Monitor renal function Elevated liver enzymes, elevated lipase level -CT does not indicate any acute abnormality contributing to these abnormalities -Continue to follow liver enzymes and lipase level. Hypertension, hyperlipidemia -Continue home medications Diabetes -Diabetic diet -Accu-Cheks with sliding scale insulin DVT prevention -Sequential compression devices (7) Chest pain Qualifiers: Chest pain type: unspecified Qualified Code(s): R07.9 - Chest pain, unspecified
--- NOTE | 2017-12-08 15:54 | CT ---
EXAM DATE: 12/08/2017 3:31 PM EDT AGE/SEX: 72 years / Male INDICATIONS: Left chest pain. Short of breath. Elevated d-dimer. CLINICAL DATA: This is the patient's initial encounter. Patient reports that signs and symptoms have been present for 3 days and indicates a pain score of 6/10. MEDICAL/SURGICAL HISTORY: Diabetes. Hypertension. Cerebrovascular disease. Cholecystectomy. RADIATION DOSE: 19.50 CTDI (mGy) COMPARISON: [facility], CT ABDOMEN & PELVIS W CONTRAST, 12/08/2017. . TECHNIQUE: Volumetric scanning was performed using a multi-row detector CT scanner during bolus infu elissa of 85 ml Omnipaque 350 (iohexol) nonionic water-soluble contrast as a cumulative dose for multi ple exams. The data was post processed with a variety of visualization algorithms including full volu me maximum intensity projection and sliding thin slab reformation. Using automated exposure control and adjustment of the mA and/or kV according to patient size, radiation dose was kept as low as reaso nably achievable to obtain optimal diagnostic quality images. DICOM format image data is available e lectronically for review and comparison. FINDINGS: Pulmonary Arteries: No filling defects are seen in the pulmonary arteries through the segmental vess els. The main pulmonary artery is normal in diameter. Lung: Groundglass opacities in the right lung base adjacent the pleural fluid. Small cyst in the sup erior segment of the right lower lobe. Pleura: Very small simple appearing right-sided pleural effusion. Mediastinum: Prominent coronary artery calcifications. Multiple subcentimeter anterior pericardial n odes. Several subcentimeter mediastinal nodes with the largest in the inferior carinal region measuri ng 11 mm. 14 mm right superior paraesophageal node. Subcentimeter right hilar nodes. Mild cardiac enl argement. Osseous Structures: No abnormal focal lytic or blastic bony lesions. Other: Visulaized upper abdomen is unremarkable. CONCLUSION: 1. No CT evidence for pulmonary artery embolism as questioned. 2. Very small simple appearing right-sided pleural effusion with associated compressive atelectasis at the right lung base. 3. Prominent coronary artery calcifications. 4. Multiple anterior pericardial, mediastinal, right hilar and superior paraesophageal lymph nodes m easuring up to 14 mm. Nodes are otherwise primarily subcentimeter in size and are most notable for nu mber. Although nonspecific, differential considerations include chronic lymphoproliferative disorder/ lymphoma. Clinical correlation is recommended. Electronically signed by: Bari Mcdermott MD 12/08/2017 3:52 PM EDT
--- NOTE | 2017-12-08 16:00 | CT ---
EXAM DATE: 12/08/2017 3:34 PM EDT AGE/SEX: 72 years / Male INDICATIONS: Abdominal pain. Elevated lipase and bilirubin. CLINICAL DATA: This is the patient's initial encounter. Patient reports that signs and symptoms have been present for 3 days and indicates a pain score of 5/10. MEDICAL/SURGICAL HISTORY: Diabetes. Cerebrovascular disease. Hypertension. Cholecystectomy. ORAL CONTRAST: No oral contrast ingested. RADIATION DOSE: 19.15 CTDI (mGy) COMPARISON: No prior exams available for comparison. TECHNIQUE: Multiple contiguous axial images were obtained through the abdomen and pelvis following b olus infusion of 85 ml Omnipaque 350 (iohexol) nonionic water-soluble contrast as a cumulative dose for multiple exams. No oral contrast ingested. Using automated exposure control and adjustment of t he mA and/or kV according to patient size, radiation dose was kept as low as reasonably achievable to obtain optimal diagnostic quality images. DICOM format image data is available electronically for r eview and comparison. FINDINGS: The spleen is enlarged to 16.5 cm in length. There is a slightly lobulated contour and heterogeneous appearance, especially superiorly. Findings are nonspecific. A splenic mass or hematoma or possibly a cute infarct could give this appearance. There is a small right-sided pleural effusion with mild right basilar atelectasis. No focal abnormali ty in the liver, adrenals or pancreas. Bilateral renal cysts present. Tiny nonobstructing bilateral r enal calculi. Moderate to severe coronary artery calcifications noted. Heart size mildly enlarged. There is upper abdominal adenopathy with a precaval lymph node measuring up to 3.9 x 1.6 cm. Also mil dly enlarged retroperitoneal lymph nodes around the aorta measuring up to about 1.4 cm in diameter on the left on image #48. Mildly enlarged left inguinal lymph node measuring up to 1.9 cm. Ortiz cathet er in decompressed bladder. Prostate enlarged. CONCLUSION: 1. Splenic enlargement to 16.5 cm with heterogeneous appearance and slightly lobulated contour suspi cious for a splenic mass. Differential diagnosis includes lymphoma although hematoma or acute infarct ion could give this appearance. 2. Abdominal adenopathy in the retroperitoneal region with largest lymph node precaval measuring up to 3.9 x 1.6 cm on image #38. 3. Small right pleural effusion with right basilar atelectasis. 4. Ortiz catheter in decompressed bladder with enlarged prostate. Electronically signed by: Ellis Pelayo MD 12/08/2017 3:59 PM EDT
[2017-12-08 16:30] LABS: Bilirubin,Urine Negative (Negative); Clarity,Urine Clear (Clear); Color,Urine Yellow (Yellw/Straw); Glucose,Urine (UA) Negative (Negative); Leukocyte Esterase,Urine Negative (Negative); Nitrite,Urine Positive (Negative); PH,Urine 7.5 (5.0-8.5); Specific Gravity,Urine Less/Equal 1.005 (1.002-1.035)
[2017-12-08 16:34] LABS: WBC,Urine 0-5 /hpf (0-5)
[2017-12-08 16:35] LABS: Bacteria,Urine Few /hpf
[2017-12-08] MEDS: Insulin NovoLOG Aspart Correctional Sugar Inj SQ SCH ×2 (17:16→21:21)
[2017-12-08 18:27] LABS: Creatine Kinase 24 U/L (39-308)
[2017-12-08 20:45] LABS: Bilirubin,Urine Negative (Negative); Clarity,Urine Clear (Clear); Color,Urine Yellow (Yellw/Straw); Glucose,Urine (UA) Negative (Negative); Leukocyte Esterase,Urine Small (Negative); Nitrite,Urine Negative (Negative); Specific Gravity,Urine Less/Equal 1.005 (1.002-1.035)
[2017-12-08 20:49] LABS: RBC,Urine 0-3 /hpf (0-3); WBC,Urine 0-5 /hpf (0-5)
[2017-12-08] MEDS: Senna/Docusate Sodium 8.6/50 MG Tablet PO SCH (20:49)
[2017-12-08 20:50] LABS: Squamous Epithelial Cell,Urine 0-5 /hpf (0-5)
[2017-12-08 23:16] LABS: Creatine Kinase 27 U/L (39-308)
[2017-12-09] MEDS: Sod Chloride 0.9% Inj 1,000 ML IV.CONT SCH ×2 (00:58→11:00)
[2017-12-09 03:37] LABS: Reticulocyte Percent 2.7 % (0.4-3.0)
[2017-12-09 03:52] LABS: % Iron Saturation 17.3 % (20-50)
[2017-12-09 04:17] LABS: Folate 10.4 ng/mL (3.1-17.5)
[2017-12-09 06:48] LABS: Hematocrit 31.6 % (39.0-51.0); Hemoglobin 9.6 gm/dL (13.0-17.0); Mean Corpuscular Hemoglobin 19.8 pg (27.0-34.0); Mean Corpuscular Volume 64.9 fL (80.0-100.0); Mean Platelet Volume 9.2 fL (7.0-11.0); Platelet Count 111 th/mm3 (150-450); Red Blood Count 4.87 mil/mm3 (4.50-5.90); Red Cell Distribution Width 17.5 % (11.6-17.2); White Blood Count 22.7 th/mm3 (4.0-11.0)
[2017-12-09 07:07] LABS: Chloride 105 meq/L (98-107); Potassium 4.1 meq/L (3.5-5.1); Sodium 140 meq/L (136-145)
[2017-12-09 07:10] LABS: Calcium 8.6 mg/dL (8.5-10.1)
[2017-12-09 07:11] LABS: Albumin 2.5 g/dL (3.4-5.0); Anion Gap 8 meq/L (5-15); Blood Urea Nitrogen 25 mg/dL (7-18); Carbon Dioxide 27.5 meq/L (21.0-32.0); Glucose,Random 133 mg/dL (74-106); Lipase 151 U/L (73-393)
[2017-12-09 07:14] LABS: Alanine Aminotransferase 48 U/L (12-78); Aspartate Aminotransferase 51 U/L (15-37); Glomerular Filtration Rate 66 mL/min (>89)
[2017-12-09 07:15] LABS: Total Protein 6.2 g/dL (6.4-8.2)
[2017-12-09 07:16] LABS: Alkaline Phosphatase 96 U/L (45-117)
[2017-12-09 07:39] LABS: Mean Corpuscular HGB Conc 30.5 % (32.0-36.0)
--- NOTE | 2017-12-09 07:57 | P.PN ---
Subjective Interval history: 72-year-old male who is seen in follow-up today for chest pain, possible lymphoma. Patient resting comfortably in bed. States that he has not had any recurrence of chest pain that has improved. Awaiting further workup to be performed. Vital signs: Patient has mildly elevated blood pressure. Patient remains afebrile. Physical Exam Vital signs: Vital Signs 12/08/17 09:52 12/08/17 10:25 12/08/17 11:26 Temperature 97.6 F Pulse Rate 112 H 99 H 91 H Respiratory Rate 20 18 20 Blood Pressure 123/68 135/73 110/67 Pulse Oximetry 95 95 95 12/08/17 12:15 12/08/17 12:42 12/08/17 16:00 Temperature 96.2 F L Pulse Rate 85 95 H Respiratory Rate 18 17 Blood Pressure 121/71 101/66 130/75 Pulse Oximetry 94 L 92 L 12/08/17 16:33 12/08/17 19:54 12/08/17 20:00 Temperature 96.9 F L Pulse Rate 93 H 101 H Respiratory Rate 20 Blood Pressure 133/77 Pulse Oximetry 94 L 92 L 12/09/17 00:00 12/09/17 04:00 12/09/17 07:39 Temperature 98.5 F 96.8 F L 96.8 F L Pulse Rate 10 L 91 H 88 Respiratory Rate 20 20 20 Blood Pressure 146/88 H 148/90 H 141/82 H Pulse Oximetry 93 L 94 L 93 L Intake & Output 12/08/17 12/09/17 12/09/17 18:59 06:59 18:59 Intake Total 1460 / 1460 1220 / 1220 Balance 1460 / 1460 1220 / 1220 Weight 86.7 kg 88.5 kg Intake: IV 500 / 500 1100 / 1100 NS Inj 1,000 ML @ 100 mls/hr IV 1000 / 1000 .CONT .Q10H HERON Rx#:[id number] NS Inj 500 ML @ Wide Open IV. 500 / 500 SIG BOLUS ONE Rx#:[id number] Rocephin Inj 1,000 MG In NS Inj 100 / 100 100 ML @ 200 mls/hr IV.SIG Q24H HERON Rx#:[id number] Oral 960 / 960 120 / 120 Other: # Voids 4 2 # Incontinent Bowel Movements 0 Narrative: GENERAL: Well-developed, well-nourished, in no acute distress. alert and orientated HEENT: Head is normocephalic without any lesions or masses noted. Facial features are symmetric. Eyes: Extraocular muscles are intact. Conjunctivae were clear. NECK: Supple without any masses. Trachea midline no deviation. No JVD, significant left neck adenopathy noted CARDIAC: Regular rhythm, regular rate. S1/S2 are heard. No murmurs gallops or rubs. LUNGS: Clear to auscultation bilaterally. No wheeze, rhonchi or rales. No use of accessory muscles on inspiration or expiration. ABDOMEN: Soft, nontender. Nondistended. Bowel sounds heard in all 4 quadrants. No organomegaly or masses. Negative rebound, negative guarding EXTREMITIES: No edema, pulses are equal bilaterally. No cyanosis or clubbing NEUROLOGY: Mood and affect appear appropriate. Cranial nerves II through XII grossly intact. Moving all extremities, speech is clear - Urinary Catheter Management Indwelling Urethral Catheter Cath placed during this visit: yes, but has since been removed by the nurse Reason for continuing: Chronic Urinary Retention Insertion date: 12/08/17 Insertion time: 22:00 Removal date: 12/08/17 Removal time: 21:55 Results - Labs CBC & Chem 7: 12/09/17 05:45 12/09/17 05:45 Laboratory Results - last 24 hr 12/08/17 12/08/17 12/08/17 10:20 10:20 10:20 CBC w Diff Slide review pending WBC 18.2 H RBC 5.35 Hgb 10.5 L Hct 33.9 L MCV 63.4 L MCH 19.7 L MCHC 31.1 L RDW 17.5 H Plt Count 126 L MPV 9.2 WBC Differential Manual diff final Seg Neuts % (Manual) 45 Lymphocytes % (Manual) 36 Monocytes % (Manual) 18 H Eosinophils % (Manual) 1 Abs Neuts (Manual) 8.2 H Nucleated RBCs/100 WBC 3 H Differential Comment . Platelet Estimate Low L Platelet Morphology Normal Target Cells 1+ H Tear Drop Cells 1+ H Ovalocytes 1+ H Retic Count Absolute Retic Haptoglobin PT 10.5 INR 1.0 APTT 25.3 D-Dimer Quant (PE/DVT) Sodium 139 Potassium 3.9 Chloride 104 Carbon Dioxide 26.3 Anion Gap 9 BUN 30 H Creatinine 1.40 H Estimated GFR 50 L POC Glucose Random Glucose 196 H Calcium 9.2 Magnesium 1.8 Iron TIBC % Saturation Ferritin Total Bilirubin Direct Bilirubin Indirect Bilirubin AST ALT Alkaline Phosphatase Lactate Dehydrogenase Total Creatine Kinase Troponin I Less than 0.02 L Total Protein Albumin Lipase Vitamin B12 Folate Urine Color Urine Clarity Urine pH Ur Specific [place] Urine Protein Urine Glucose (UA) Urine Ketones Urine Occult Blood Urine Nitrate Urine Bilirubin Urine Urobilinogen Ur Leukocyte Esterase Urine RBC Urine WBC Ur Squamous Epith Cells Urine Bacteria Micro UA Comment Urine Culture Comments 12/08/17 12/08/17 12/08/17 10:20 10:20 10:20 CBC w Diff WBC RBC Hgb Hct MCV MCH MCHC RDW Plt Count MPV WBC Differential Seg Neuts % (Manual) Lymphocytes % (Manual) Monocytes % (Manual) Eosinophils % (Manual) Abs Neuts (Manual) Nucleated RBCs/100 WBC Differential Comment Platelet Estimate Platelet Morphology Target Cells Tear Drop Cells Ovalocytes Retic Count 2.7 Absolute Retic 147.2 Haptoglobin PT INR APTT D-Dimer Quant (PE/DVT) 4.99 H Sodium Potassium Chloride Carbon Dioxide Anion Gap BUN Creatinine Estimated GFR POC Glucose Random Glucose Calcium Magnesium Iron TIBC % Saturation Ferritin Total Bilirubin 1.3 H Direct Bilirubin 0.5 H Indirect Bilirubin 0.8 AST 66 H ALT 60 Alkaline Phosphatase 110 Lactate Dehydrogenase Total Creatine Kinase Troponin I Total Protein 6.9 Albumin 2.9 L Lipase 514 H Vitamin B12 Folate Urine Color Urine Clarity Urine pH Ur Specific [place] Urine Protein Urine Glucose (UA) Urine Ketones Urine Occult Blood Urine Nitrate Urine Bilirubin Urine Urobilinogen Ur Leukocyte Esterase Urine RBC Urine WBC Ur Squamous Epith Cells Urine Bacteria Micro UA Comment Urine Culture Comments 12/08/17 12/08/17 12/08/17 16:21 16:44 16:44 CBC w Diff WBC RBC Hgb Hct MCV MCH MCHC RDW Plt Count MPV WBC Differential Seg Neuts % (Manual) Lymphocytes % (Manual) Monocytes % (Manual) Eosinophils % (Manual) Abs Neuts (Manual) Nucleated RBCs/100 WBC Differential Comment Platelet Estimate Platelet Morphology Target Cells Tear Drop Cells Ovalocytes Retic Count Absolute Retic Haptoglobin 157 PT INR APTT D-Dimer Quant (PE/DVT) Sodium Potassium Chloride Carbon Dioxide Anion Gap BUN Creatinine Estimated GFR POC Glucose Random Glucose Calcium Magnesium Iron 57 L TIBC 329 % Saturation 17.3 L Ferritin 399 H Total Bilirubin Direct Bilirubin Indirect Bilirubin AST ALT Alkaline Phosphatase Lactate Dehydrogenase 326 H Total Creatine Kinase 24 L Troponin I Less than 0.02 L Total Protein Albumin Lipase Vitamin B12 632 Folate 10.4 Urine Color Yellow Urine Clarity Clear Urine pH 7.5 Ur Specific [place] Less/equal 1.005 Urine Protein Negative Urine Glucose (UA) Negative Urine Ketones Negative Urine Occult Blood Trace Urine Nitrate Positive H Urine Bilirubin Negative Urine Urobilinogen 1.0 Ur Leukocyte Esterase Negative Urine RBC Urine WBC 0-5 Ur Squamous Epith Cells Urine Bacteria Few H Micro UA Comment Cath-culture ind Urine Culture Comments Cath-cult indicated 12/08/17 12/08/17 12/08/17 17:07 18:07 20:30 CBC w Diff WBC RBC Hgb Hct MCV MCH MCHC RDW Plt Count MPV WBC Differential Seg Neuts % (Manual) Lymphocytes % (Manual) Monocytes % (Manual) Eosinophils % (Manual) Abs Neuts (Manual) Nucleated RBCs/100 WBC Differential Comment Platelet Estimate Platelet Morphology Target Cells Tear Drop Cells Ovalocytes Retic Count Absolute Retic Haptoglobin PT INR APTT D-Dimer Quant (PE/DVT) Sodium Potassium Chloride Carbon Dioxide Anion Gap BUN Creatinine Estimated GFR POC Glucose 64 L 156 H Random Glucose Calcium Magnesium Iron TIBC % Saturation Ferritin Total Bilirubin Direct Bilirubin Indirect Bilirubin AST ALT Alkaline Phosphatase Lactate Dehydrogenase Total Creatine Kinase Troponin I Total Protein Albumin Lipase Vitamin B12 Folate Urine Color Yellow Urine Clarity Clear Urine pH 6.0 Ur Specific [place] Less/equal 1.005 Urine Protein Negative Urine Glucose (UA) Negative Urine Ketones Negative Urine Occult Blood Small H Urine Nitrate Negative Urine Bilirubin Negative Urine Urobilinogen 2.0 H Ur Leukocyte Esterase Small H Urine RBC 0-3 Urine WBC 0-5 Ur Squamous Epith Cells 0-5 Urine Bacteria Micro UA Comment Cath-culture not ind Urine Culture Comments Cath-cult not ind 12/08/17 12/08/17 12/09/17 21:14 22:30 05:45 CBC w Diff Slide review pending WBC 22.7 H RBC 4.87 Hgb 9.6 L Hct 31.6 L MCV 64.9 L MCH 19.8 L MCHC 30.5 L RDW 17.5 H Plt Count 111 L MPV 9.2 WBC Differential Seg Neuts % (Manual) Lymphocytes % (Manual) Monocytes % (Manual) Eosinophils % (Manual) Abs Neuts (Manual) Nucleated RBCs/100 WBC Differential Comment . Platelet Estimate Platelet Morphology Target Cells Tear Drop Cells Ovalocytes Retic Count Absolute Retic Haptoglobin PT INR APTT D-Dimer Quant (PE/DVT) Sodium Potassium Chloride Carbon Dioxide Anion Gap BUN Creatinine Estimated GFR POC Glucose 295 H Random Glucose Calcium Magnesium Iron TIBC % Saturation Ferritin Total Bilirubin Direct Bilirubin Indirect Bilirubin AST ALT Alkaline Phosphatase Lactate Dehydrogenase Total Creatine Kinase 27 L Troponin I Less than 0.02 L Total Protein Albumin Lipase Vitamin B12 Folate Urine Color Urine Clarity Urine pH Ur Specific [place] Urine Protein Urine Glucose (UA) Urine Ketones Urine Occult Blood Urine Nitrate Urine Bilirubin Urine Urobilinogen Ur Leukocyte Esterase Urine RBC Urine WBC Ur Squamous Epith Cells Urine Bacteria Micro UA Comment Urine Culture Comments 12/09/17 05:45 CBC w Diff WBC RBC Hgb Hct MCV MCH MCHC RDW Plt Count MPV WBC Differential Seg Neuts % (Manual) Lymphocytes % (Manual) Monocytes % (Manual) Eosinophils % (Manual) Abs Neuts (Manual) Nucleated RBCs/100 WBC Differential Comment Platelet Estimate Platelet Morphology Target Cells Tear Drop Cells Ovalocytes Retic Count Absolute Retic Haptoglobin PT INR APTT D-Dimer Quant (PE/DVT) Sodium 140 Potassium 4.1 Chloride 105 Carbon Dioxide 27.5 Anion Gap 8 BUN 25 H Creatinine 1.10 Estimated GFR 66 L POC Glucose Random Glucose 133 H Calcium 8.6 Magnesium Iron TIBC % Saturation Ferritin Total Bilirubin 0.8 Direct Bilirubin Indirect Bilirubin AST 51 H ALT 48 Alkaline Phosphatase 96 Lactate Dehydrogenase Total Creatine Kinase Troponin I Total Protein 6.2 L D Albumin 2.5 L Lipase 151 Vitamin B12 Folate Urine Color Urine Clarity Urine pH Ur Specific [place] Urine Protein Urine Glucose (UA) Urine Ketones Urine Occult Blood Urine Nitrate Urine Bilirubin Urine Urobilinogen Ur Leukocyte Esterase Urine RBC Urine WBC Ur Squamous Epith Cells Urine Bacteria Micro UA Comment Urine Culture Comments - Imaging Impressions Chest CTA 12/08/17 00:00 CONCLUSION: 1. No CT evidence for pulmonary artery embolism as questioned. 2. Very small simple appearing right-sided pleural effusion with associated compressive atelectasis at the right lung base. 3. Prominent coronary artery calcifications. 4. Multiple anterior pericardial, mediastinal, right hilar and superior paraesophageal lymph nodes measuring up to 14 mm. Nodes are otherwise primarily subcentimeter in size and are most notable for number. Although nonspecific, differential considerations include chronic lymphoproliferative disorder/ lymphoma. Clinical correlation is recommended. Chest X-Ray 12/08/17 10:22 CONCLUSION: Mild basilar atelectasis. No significant change from May. Head CT 12/08/17 10:22 CONCLUSION: 1. Microvascular ischemic demyelinative change. 2. No acute abnormality seen. Stable compared to previous examination. . Abdomen/Pelvis CT 12/08/17 14:35 CONCLUSION: 1. Splenic enlargement to 16.5 cm with heterogeneous appearance and slightly lobulated contour suspicious for a splenic mass. Differential diagnosis includes lymphoma although hematoma or acute infarction could give this appearance. 2. Abdominal adenopathy in the retroperitoneal region with largest lymph node precaval measuring up to 3.9 x 1.6 cm on image #38. 3. Small right pleural effusion with right basilar atelectasis. 4. Ortiz catheter in decompressed bladder with enlarged prostate. Assessment and Plan - Assessment (1) Systemic inflammatory response syndrome Code(s): R65.10 - Systemic inflammatory response syndrome (SIRS) of non- infectious origin without acute organ dysfunction Status: Acute (2) Abdominal pain Code(s): R10.9 - Unspecified abdominal pain Status: Acute (3) Leukocytosis Code(s): D72.829 - Elevated white blood cell count, unspecified Status: Acute (4) Thrombocytopenia Code(s): D69.6 - Thrombocytopenia, unspecified Status: Acute (5) Microcytic anemia Code(s): D50.9 - Iron deficiency anemia, unspecified Status: Acute (6) Acute renal failure superimposed on stage 2 chronic kidney disease Code(s): N17.9 - Acute kidney failure, unspecified; N18.2 - Chronic kidney disease, stage 2 (mild) Status: Acute (7) Chest pain Code(s): R07.9 - Chest pain, unspecified Status: Acute - Plan Systemic inflammatory response syndrome -Patient meets criteria with leukocytosis, tachycardia, no infectious source has been identified at this time -Blood cultures are pending -Chest x-ray does not indicate any acute abnormality -CT scans do not indicate any infection source -Urinalysis taken from indwelling Ortiz showed mild abnormality, Ortiz was changed and repeat urinalysis does not indicate any infection. Chest pain/abdominal pain -No significant findings were appreciated with ER workup. Further testing to include LFTs, lipase, CT of the abdomen, pulmonary angiogram were requested for further evaluation and management of the patient's presenting symptoms -Laboratory studies do indicate mild liver enzyme elevation as well as lipase elevation, which have resolved -Pulmonary angiogram was performed which did show multiple pericardial/ mediastinal/right hilar and superior paraesophageal lymph nodes measuring up to 14 mm. Although nonspecific differential considerations include chronic lymphoproliferative disorder/lymphoma. -CT abdomen was performed which did show splenic enlargement to 16.5 cm with slightly lobulated contour suspicious for a splenic mass. Differential would include lymphoma, hematoma or acute infarct patient. Also abdominal adenopathy in the retroperitoneal region with largest lymph node pre-caval measuring up to 3.9 x 1.6 cm. -Additional clinical data leukocytosis, thrombocytopenia, microcytic anemia -Oncology consult for further evaluation and management, who indicates that patient will require lymph node biopsy which can be performed in outpatient setting. Further testing has been requested with protein electrophoresis -Given the patient's risk factors for underlying cardiac disease patient has been ruled out for acute coronary event with serial cardiac enzymes that are negative, serial cardiac enzymes are reviewed by myself to indicate any acute abnormality. -Myocardial perfusion study was performed and indicated normal examination, low risk -Discussed with oncologist who indicated patient may be discharged. They have the phone number to call for an appointment on Monday. They will arrange outpatient evaluation, lymph node biopsy. This was discussed with the patient they do understand and are in agreement. Microcytic anemia -Iron studies were performed which did show some mildly low iron, however ferritin with a good level. Recheck, B12, folate all normal Thrombocytopenia, mild worsening -Follow CBC Acute on chronic kidney disease stage II -Continue IV fluids -Monitor renal function Elevated liver enzymes, elevated lipase level -CT does not indicate any acute abnormality contributing to these abnormalities -Follow-up liver enzymes and lipase level have returned to normal -Hepatitis profile was negative Hypertension, hyperlipidemia -Continue home medications Diabetes -Diabetic diet -Accu-Cheks with sliding scale insulin DVT prevention -Sequential compression devices Discharge Planning: Discharge home in stable condition Activity: Ad grant. Diet: Diabetic diet Medication per medication reconciliation Follow-up with primary medical doctor in 1 week (7) Chest pain Qualifiers: Chest pain type: unspecified Qualified Code(s): R07.9 - Chest pain, unspecified
[2017-12-09 08:38] LABS: Blast Cells 7 % (0-0); Eosinophils 1 % (0-4); Lymphocytes 24 % (9-44); Metamyelocytes 4 % (0-1); Monocytes 25 % (0-8); Myelocytes 1 % (0-0); Tallied Nucleated RBC 1 (0-0)
[2017-12-09 08:39] LABS: Target Cells 2+
[2017-12-09 08:40] LABS: Ovalocytes 2+; Tear Drop Cells 1+
[2017-12-09 08:41] LABS: Platelet Morphology Normal (Normal)
[2017-12-09] MEDS: Insulin NovoLOG Aspart Correctional Sugar Inj SQ SCH ×2 (08:44→12:39)
[2017-12-09] MEDS: Senna/Docusate Sodium 8.6/50 MG Tablet PO SCH (08:45)
[2017-12-09 11:33] LABS: Immunoglobulin A 269 mg/dL (103-568)
[2017-12-09] MEDS ORDERED: Regadenoson Inj 0.4 MG/5 ML Syringe IV.PUSH ONE (11:39)
[2017-12-09 11:43] LABS: Immunoglobulin G 947 mg/dL (680-1670); Immunoglobulin M 54 mg/dL (38-231); Kappa Lambda Ratio 1.68 (1.57-3.93); Lambda Light Chain 139 mg/dL (90-210)
[2017-12-09 12:04] LABS: Hepatitits B Surface Antigen Nonreactive (Nonreactive)
[2017-12-09 12:36] LABS: Hepatitis A IgM Antibody Nonreactive (Nonreactive)
--- NOTE | 2017-12-09 12:48 | NM ---
EXAM DATE: 12/09/2017 12:44 PM EDT AGE/SEX: 72 years / Male INDICATIONS:Angina. . Left sided chest pain. CLINICAL DATA: This is the patient's initial encounter. Patient reports that signs and symptoms have been present for 4 - 6 days and indicates a pain score of 6/10. MEDICAL/SURGICAL HISTORY: Diabetes mellitus type II. Hypertension. Appendectomy. Cholecystect joni. Right arm surgery. COMPARISON: HH, US CAROTID ARTERIES, 06/13/2017. . DOSE: 8.2 mCi Tc 99m Myoview at rest 26.5 mCi [id number] at stress 0.4 mg Lexiscan STRESS SYMPTOMS: Short of breath. EJECTION FRACTION: 66 % TECHNIQUE: The patient underwent pharmacologic stress with infusion of prescribed dose. Continuous ECG tracing was monitored during stress. Gated SPECT imaging was performed after stress and conventi onal SPECT imaging was performed at rest. The examination was performed on a SPECT/CT scanner, both attenuation and non-corrected datasets were reviewed. FINDINGS: Distribution: The maximum perfused segment at stress is in the anterolateral wall. Perfusion Study: The pattern of perfusion at stress is within normal limits. Gated Study: There are intact wall motion and wall thickening without hypokinetic or dyskinetic segm ents. The ejection fraction is calculated at 66%. RISK CATEGORY: Low (<1% Annual Motality Rate) CONCLUSION: 1. No evidence for stress-induced ischemia. 2. Intact wall motion with EF of 66%. Electronically signed by: Bari Mcdermott MD 12/09/2017 12:46 PM EDT
--- NOTE | 2017-12-09 14:47 | TR ---
Date Performed: 12/09/2017 Time Performed: 11:58:36 DOCTOR: Yaniv Garnett DRUG LIST: LiPITOR ASA CLINICAL HISTORY: HTN DIABETES ANGINA CVA REASON FOR TEST: REASON FOR ENDING: OBSERVATION: CONCLUSION: COMMENTS: Lexiscan stress test was performed under standard four minute protocol. Radionuclide was injected one minute prior to ending the test. No electrocardiographic abormalities were present t o suggest ischemia. Nuclear imaging and interpretation are pending.
--- NOTE | 2017-12-09 16:53 | ECG ---
Date Performed: 12/08/2017 Time Performed: 16:32:37 PTAGE: 72 years EKG: Sinus rhythm MARKED LEFT AXIS DEVIATION PATTERN CONSISTENT WITH PULMONARY DISEASE Since previous tracing, no sign ificant change noted ABNORMAL ECG PREVIOUS TRACING : 12/08/2017 10.07 DOCTOR: Yaniv Garnett Interpretating Date/Time 12/09/2017 16:51:49
--- NOTE | 2017-12-09 16:53 | ECG ---
Date Performed: 12/08/2017 Time Performed: 10:07:11 PTAGE: 72 years EKG: SINUS TACHYCARDIA POSSIBLE LEFT ATRIAL ENLARGEMENT PATTERN CONSISTENT WITH PULMONARY DISEAS E LEFT ANTERIOR FASCICULAR BLOCK When compared to previous tracing, no significant change. ABNORMAL E CG PREVIOUS TRACING : 06/12/2017 17.36 DOCTOR: Yaniv Garnett Interpretating Date/Time 12/09/2017 16:51:17
--- NOTE | 2017-12-09 16:53 | ECG ---
Date Performed: 12/08/2017 Time Performed: 22:23:40 PTAGE: 72 years EKG: Sinus rhythm MARKED LEFT AXIS DEVIATION PATTERN CONSISTENT WITH PULMONARY DISEASE Since previous tracing, no sign ificant change noted ABNORMAL ECG PREVIOUS TRACING : 12/08/2017 16.32 DOCTOR: Yaniv Garnett Interpretating Date/Time 12/09/2017 16:51:57
--- NOTE | 2017-12-12 11:08 | MB ---
cc: Katie Barclay MD, Matthew J PA DATE: 12/08/2017 REFERRING PHYSICIAN: Alex Weaver MD CHIEF COMPLAINT: Dr. Weaver requested consultation for Mr. Sheldon regarding leukocytosis, microcytic anemia, thrombocytopenia associated with adenopathy. HISTORY OF PRESENT ILLNESS: Mr. Sheldon is a 72-year-old man with multiple medical problems. He has a history of diabetes, hypercholesterolemia, hypertension, benign prostatic hypertrophy, and CVA. He apparently had right-sided weakness. He has residual peripheral neuropathy on the right side with burning and numbness. He remains on gabapentin. Reports being able to walk around his house 4 times a day. Over the last 2 or 3 days, he has difficulty walking around, even once. He denies any bleeding. No melena or bright red blood per rectum. He developed left-sided chest pain that prompted him to come into the emergency room. Denies any shortness of breath. Denies any fevers, chills or night sweats. He has no nausea, vomiting or abdominal pain. He has good strength on his right side despite the neuropathy. He denies any headaches. Workup during his evaluation included a CT angiogram that showed no evidence of pulmonary embolism. There is a very small right-sided pleural effusion. There are multiple anterior pericardial, mediastinal, right hilar, supra-paraesophagus lymph nodes measuring 14 mm. Additional findings: A CT scan of the abdomen shows splenic enlargement measuring 16.5 cm. There is some abdominal adenopathy and retroperitoneal region. The largest lymph node measuring 3.9 x 1.6 cm. There is a Ortiz catheter in place. Prostate is enlarged. LABORATORY: Laboratory evaluation shows a white blood cell count 18.2, hemoglobin 10.5, MCV is low at 63.2, platelet count 162. Review of the electronic medical record shows a hemoglobin of 11.4. A year ago, his platelet count was on the low side of normal. Review of the historical files shows a relatively normal platelet count, dating back to 2006. He has had a chronic microcytic anemia. His white blood cell count was normal, hemoglobin electrophoresis shows an increase in hemoglobin A2 and hemoglobin A was 91.5%. This suggests a beta thalassemia trait. PAST MEDICAL HISTORY: Benign prostatic hypertrophy, beta thalassemia trait, CVA with right-sided neuropathy, diabetes, hypercholesterolemia, hypertension. PAST SURGICAL HISTORY: Cholecystectomy. SOCIAL HISTORY: He is , lives with his . He is retired. He denies any tobacco, alcohol or illicit drug use. FAMILY HISTORY: Significant for father of old age at age 82. Mother of some cancer, unknown primary at age 63. ALLERGIES: NO KNOWN DRUG ALLERGIES. CURRENT MEDICATIONS: Include: 1. Tylenol. 2. Milk of Magnesia. 3. Dulcolax. 4. Glucagon. 5. NovoLog. 6. Lactulose. 7. Ondansetron. 8. Temazepam. PHYSICAL EXAMINATION: VITAL SIGNS: Temperature 96.2, heart rate 95, respiratory rate 17, blood pressure 130/75, saturation 92%. GENERAL: Mr. Sheldon is a well-developed, well-nourished, pleasant, elderly man in no acute distress. His appetite is good. HEENT: His pupils are round, reactive to light and accommodation. Oropharynx is clear. There is bilateral submandibular adenopathy, the left more prominent than the right. The left supraclavicular adenopathy is noted as well as left axillary adenopathy. LUNGS: Clear to auscultation. CARDIOVASCULAR: Reveals normal rate and rhythm. ABDOMEN: Large but benign. No organomegaly appreciated. EXTREMITIES: Lower extremities: No edema. Good pulses. NEUROLOGIC: Nonfocal. There is subjective neuropathy on the right side. LABORATORY DATA: As described above. Chemistry with a BUN of 30, creatinine 1.4. Albumin is 2.9. Troponin I negative. ASSESSMENT AND PLAN: Mr. Sheldon 72-year-old man with multiple medical problems described above. He presents to the emergency room with increasing fatigue, weakness, decreased endurance and left-sided chest pain. It was atypical in nature. He is admitted for the chest pain evaluation. CT angiogram was negative, but was found to have adenopathy. I discussed with Mr. Sheldon findings of adenopathy in the chest and in the abdomen. We discussed the differential to include diagnosis of lymphoma. Ultimately, an excisional biopsy of the lymph node would be ideal. He has a palpable left axillary, left supraclavicular left submandibular lymph node. These are options for biopsy and excision. We discussed continued follow up on an outpatient basis, to proceed with biopsy. He is interested that his son, who is away in [place] at a conference will be back next week. He would like his son to partake in this. His labs show leukocytosis, anemia, thrombocytopenia. His anemia appears to be related to beta thalassemia trait. He is more anemic than previous. His white count is higher than previous. He is noted to have some nucleated red blood cells, which may artificially increase the white blood cells. He is more thrombocytopenic than previous. He is asymptomatic from the thrombocytopenia. We discussed that anemia may contribute to this. I am unable to exclude iron deficiency. Iron studies can be obtained. Mr. Sheldon's questions were answered to his satisfaction. MD JEIMY Mendenhall/barb , 05:59 PM , 06:13 PM
== END 2017-12-09 14:32 | disposition home or self-care (01) ==
LOC: PHEDA 09:51 → PHED 09:51 → PH3 09:51
PROVIDERS: ADMIT Family Medicine; ATTEND Family Medicine